=== PATIENT | female | born 1985 | race Caucasian/White ===

== ENCOUNTER 2025-04-07 12:26 | Inpatient (IN) | payer MEDICAID ==
[~2025-04-07] VITALS: Ht 142.2 cm; Wt 47.2 kg
[~2025-04-07 12:26] MED LIST: CALC-499 PO; LEVO50TA8 PO; MAGN24002 PO; MINE105O TP; MULT-620 PO; PSYL1PAC11 PO; SULF1TAB45 PO; TRAZ-256 PO
--- NOTE | 2025-04-07 14:06 | Physician Documentation ---
History of Present Illness ~ Chief Complaint: Nausea Stated Complaint: ABD SWELLING VOMITING Time Seen by MD: 12:51 Primary Medical Doctor: JUNE Mode of Arrival: POV, Ambulatory HPI Patient is seen today with her mother with complaints of abdominal distention and nausea and vomiting and decreased appetite over the last few days. Patient also has not had a bowel movement for about four days being last Sunday. Mother states she has had passage of a small amount of gas. 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 They have no other concern or complaint at this time. Patient's mother states that patient does have history of prior abdominal surgery removing a large tumor from her abdomen being a few years ago. Medication Reconciliation Allergies: Coded Allergies: clonidine (Verified Allergy, Unknown, 04/07/25) lamotrigine (Verified Allergy, Unknown, 04/07/25) risperidone (Verified Allergy, Unknown, 04/07/25) Scheduled Calcium Citrate/Vitamin D3 (Citracal + D Caplet), 1 TAB PO DAILY, (Reported) Levothyroxine Sodium (Levothyroxine Sodium), 1 TAB PO DAILY, (Reported) Multivitamins (Multivitamins), 1 TABLET PO DAILY, (Reported) Petrolatum,White (Aquaphor), 1 APPLIC TP QPM, (Reported) Psyllium Seed/Sucrose (Metamucil Packet), 1 EACH PO DAILY, (Reported) Sulfamethoxazole/Trimethoprim (Septra Ds Tab), 1 TAB PO BID, (Reported) Trazodone HCl (Trazodone HCl), 1 TAB PO HS, (Reported) Scheduled PRN Magnesium Hydroxide (Milk Of Magnesia), 15 ML PO HS PRN for constipation, (Reported) Past Medical History Past Medical History: Hypothyroidism Past Surgical History: no surgical history Smoking Status: Never smoker Alcohol Use: None Drug Use: none Review of Systems Constitutional: Denies: chills, fever, weakness Eyes: Denies: pain, blurred vision ENT: Denies: ear pain, nose pain, throat pain, mouth pain Respiratory: Denies: cough, shortness of breath Cardiovascular: Denies: chest pain, palpitations Gastrointestinal: Denies: abdominal pain, nausea, vomiting Genitourinary: Denies: burning, dysuria Female Genitalia: Denies: vaginal discharge, pelvic pain Neurological: Denies: headache, dizziness Musculoskeletal: Denies: pain, swelling Integumentary: Denies: rash, lesions Allergic/Immunologic: Denies: hives, itching Hematologic/Lymphatic: Denies: no symptoms reported Psychiatric: Denies: depression, anxiety Physical Exam Vital Signs: Temperature: 98.8, Source: Temporal, Heart Rate: 97, Respiratory Rate: 18, BP: 153/110, Pulse Oximetry: 96, Weight: 47.200 Oxygen Flow Rate: 0 Physical Exam General: Awake and Alert, no acute distress. Patient has appearance of Prader- Willi generally and is non communicative. HEENT: Conjunctiva pink, Sclera clear, Mucus Membranes moist. Neck: Supple without masses and tenderness. Resp: Unlabored. Lungs clear to auscultation bilaterally. Heart: Regular Rate and rhythm, normal S1 and S2 without murmur, rub or gallop. Abdomen: Abdomen is soft and quite distended, grossly nontender, no rebound or guarding. Decreased bowel sounds. Extremities: No cyanosis,clubbing or edema. Skin: Warm and Dry. Progress Results/Orders Results/Orders Orders - RAMIREZ HERNANDEZ PAC Abdomen,Single View(Kub) (04/07/25 14:01) Hcg, Ur Ql (04/07/25 14:01) Urinalysis, Cult If Indicated (04/07/25 14:01) Straight Cath For Urine Sample (04/07/25 14:01) Saline Lock (04/07/25 ) Ct Abdomen Pelvis (04/07/25 17:16) Page Hospitalist (04/07/25 17:35) Fill Out Med Reconciliation (04/07/25 17:35) * Restraint Order/Renewal * (04/07/25 17:44) Abdomen,Single View(Kub) (04/07/25 17:57) Completed Orders - RAMIREZ HERNANDEZ PAC Abdomen,Single View(Kub) (04/07/25 14:01) Cbc/Diff (04/07/25 14:01) Lipase (04/07/25 14:01) Hcg Serum Ql (04/07/25 14:01) BMP (04/07/25 14:01) Lacticsepsis (04/07/25 14:01) Ondansetron Disint. Tablet (Zofran Odt T (04/07/25 14:05) Sennosides/Docusate Sodium Tab (Senna-S (04/07/25 14:05) Man Diff (04/07/25 14:15) Diazepam Inj (Valium Inj) (04/07/25 15:56) Ct Abdomen Pelvis (04/07/25 17:16) Normal Saline 1000ml (0.9% Sodium Chlori (04/07/25 15:56) Iohexol 300mg/Ml 100ml Inj. (Omnipaque-3 (04/07/25 16:00) Diazepam Inj (Valium Inj) (04/07/25 17:40) Abdomen,Single View(Kub) (04/07/25 17:57) Medications Received in ER Medications (Trade) Dose Ordered Sig/Enedina Route PRN Reason Start Time Stop Time Status Last Admin Dose Admin (Zofran ODT tablet) 4 mg ONCE STAT PO 04/07/25 14:05 04/07/25 14:15 DC 04/07/25 14:33 4 MG (Senna-S tablet) 1 tab ONCE STAT PO 04/07/25 14:05 04/07/25 14:15 DC 04/07/25 14:33 1 TAB (Valium inj) 5 mg ONCE STAT IV 04/07/25 15:56 04/07/25 15:58 DC 04/07/25 16:54 5 MG Sodium Chloride 1,000 ml @ 1,000 mls/hr ONCE STAT IV 04/07/25 15:56 04/07/25 16:55 DC 04/07/25 16:53 1,000 MLS/HR (Valium inj) 5 mg ONCE ONCE IV 04/07/25 17:40 04/07/25 17:41 DC 04/07/25 17:43 5 MG Vital Signs 04/07/25 04/07/25 04/07/25 04/07/25 12:29 13:41 14:30 16:54 Temp 98.8 Pulse 97 90 Resp 18 18 16 16 B/P (MAP) 153/110 156/97 (116) Pulse Ox 96 98 O2 Flow Rate 0 0 04/07/25 04/07/25 16:56 17:43 Pulse 85 Resp 14 20 B/P (MAP) 157/113 (128) Pulse Ox 98 O2 Flow Rate 0 Laboratory Tests Test 04/07/25 12:37 04/07/25 14:15 Glucometer 147 H White Blood Count 4.0 L Red Blood Count 5.34 Hemoglobin 15.5 Hematocrit 46.2 H Mean Corpuscular Volume 86.4 Mean Corpuscular Hemoglobin 29.0 Mean Corpuscular Hemoglobin Concent 33.6 Red Cell Distribution Width 14.6 H Platelet Count 237 Mean Platelet Volume 7.4 Neutrophils (%) (Auto) 48.2 Lymphocytes (%) (Auto) 31.7 Monocytes (%) (Auto) 18.8 H Eosinophils (%) (Auto) 1.0 Basophils (%) (Auto) 0.3 Neutrophils # (Auto) 1.9 Lymphocytes # (Auto) 1.3 Monocytes # (Auto) 0.8 Eosinophils # (Auto) 0.0 Basophils # (Auto) 0.0 CBC Comment Differential Total Cells Counted 100 Neutrophils % (Manual) 40.0 L Lymphocytes % (Manual) 45.0 Monocytes % (Manual) 14.0 H Basophils % (Manual) 1.0 Platelet Estimate Normal Red Blood Cell Morphology Normal Basophilic Stippling Sodium Level 130 L Potassium Level 3.8 Chloride Level 88 L Carbon Dioxide Level 33.3 H Anion Gap 9 Blood Urea Nitrogen 30 H Creatinine 0.70 Estimated GFR/1.73 m2 > 90 BUN/Creatinine Ratio 42.9 H Glucose Level 117 H Lactic Acid Level 1.2 Calcium Level 9.1 Albumin 4.0 Lipase 43 Human Chorionic Gonadotropin, Qual Negative Chemistry Comments EKG/XRAY/CT/US/VASC/MRI Abdominal X-Ray : Additional Comment DIAGNOSTIC RADIOLOGY Patient: BANDAR VALDEZ Medical Record: [id number] [facility] : 1985, Age: 39 Sex: Female Location: ER Patient Status: REG ER Service Date/Time: 04/07/25 1401 Ordering Physician: RAMIREZ HERNANDEZ PAC Exam: ABDOMEN,SINGLE VIEW(KUB) Date: 04/07/2025 02:41 PM Examination: DI ABDOMEN,SINGLE VIEW(KUB) History: abd bloating, constipation Comparison: None TECHNIQUE: Frontal views of the abdomen was obtained. FINDINGS: Dilated loops of small bowel measuring up to 6 cm. The lung bases are unremarkable. No acute osseous abnormality identified. IMPRESSION: Dilated loops of small bowel measuring up to 6 cm. Small-bowel obstruction can not be excluded. Recommend further evaluation with CT. Electronically Signed by:SANGEETHA IHLL MD Date & Time: 04/07/251456 Dictated by: SANGEETHA HILL MD Dictation date and time: 04/07/251456 Primary Care Provider: NO PRIMARY CARE PROVIDER cc: RAMIREZ HERNANDEZ PAC ~ CT : Impression CAT SCAN Patient: BANDAR VALDEZ Medical Record: [id number] [facility] : 1985, Age: 39 Sex: Female Location: ER Patient Status: [facility] ER Service Date/Time: 04/07/251715 Ordering Physician: RAMIREZ HERNANDEZ PAC Exam: CT ABDOMEN PELVIS Exam: CT CT ABDOMEN PELVIS W/ IV CONTRAST History: abd pain, possible SBO Comparison Study: None TECHNIQUE: Multidetector CT of the abdomen and pelvis with IV contrast. Axial, coronal and sagittal multiplanar reformats were obtained from the axial data set by the technologist. Radiation Dose Information: CT Dose: CTDI volume is 15.56 mGy. Dose-length product is 772.72 mGy*cm FINDINGS: Bibasilar atelectasis. Partially visualized heart is unremarkable. Liver, spleen, gallbladder, pancreas and adrenal glands are unremarkable. Mild bilateral paranasal sinuses. Otherwise Kidneys and ureters are unremarkable. Mild wall thickening the urinary bladder due to inadequate distention. Uterus is unremarkable. Mild wall thickening of the distal esophagus. Fluid-filled Significantly distended stomach. Significant distention of proximal and mid small bowel loops up to 5.4 cm with transition point over the midline upper pelvis. The most distal small bowel loops appears to be decompressed. Wall thickening of Proximal small bowel loops. Appendix is unremarkable. Small to moderate amount of fecal material within the colon. Mild rectal wall thickening. No evidence of intraperitoneal free air or free fluid. No evidence of aortic aneurysm or dissection. No significant lymphadenopathy. Surgical clips are noted of the midline and right posterior pelvis. The soft tissues unremarkable. No evidence of acute osseous abnormalities. IMPRESSION: Enteritis of the proximal small bowel with small bowel obstruction measuring up to 5.4 cm with transition point over the midline upper pelvis. Significant distention of the stomach which is most likely associated with the small bowel obstruction. Mild wall thickening of the distal esophagus. Correlate for esophagitis. Mild rectal wall thickening which may be due to inadequate distention mild proctitis not excluded. Electronically Signed by:BRITT SON DO Date & Time: 04/07/251736 Dictated by: BRITT SON DO Dictation date and time: 04/07/251736 Primary Care Provider: NO PRIMARY CARE PROVIDER cc: RAMIREZ HERNANDEZ PAC ~ Medical Decision Making Findings Patient is seen today with her mother with complaints of abdominal distention and nausea and vomiting and decreased appetite over the last few days. Patient also has not had a bowel movement for about four days being last Sunday. Mother states she has had passage of a small amount of gas. 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 They have no other concern or complaint at this time. Patient's mother states that patient does have history of prior abdominal surgery removing a large tumor from her abdomen being a few years ago. Patient did have small bowel obstruction visualized on CT scan. I did contact the surgeon on-call Dr. Robins who agreed to see patient in the morning and advised placement of the NG tube. I did consult with the hospitalist as well and patient will be admitted for observation and surgical consult. Patient was given Valium IV as well as normal saline IV. Departure Disposition: ADMITTED INPATIENT Admitted to Inpatient Unit: to hospitalist Admission Level of Care: Med/Surg Impression: Primary Impression: SBO (small bowel obstruction) Condition: Stable Additional Instructions: Patient did have small bowel obstruction visualized on CT scan. I did contact the surgeon on-call Dr. Robins who agreed to see patient in the morning and advised placement of the NG tube. I did consult with the hospitalist as well and patient will be admitted for observation and surgical consult. Patient was given Valium IV as well as normal saline IV. Referrals: NO PRIMARY CARE PROVIDER (PCP) Signature Scribe Signature: No scribe Attestation: No scribe RAMIREZ HERNANDEZ PAC Apr 07, 2025 14:06
[2025-04-07 14:24] LABS: MEAN PLATELET VOLUME 7.4 FL (7.4-10.4); RED CELL DISTRIBUTION WIDTH 14.6 % (11.5-14.5)
[2025-04-07] MEDS: ondansetron 4mg rapidly disintigrating tab PO STA (14:33)
[2025-04-07 14:39] LABS: TOTAL CARBON DIOXIDE 33.3 MMOL/L (24-32)
[2025-04-07 14:48] LABS: HCG SERUM QL NEGATIVE
[2025-04-07 14:49] LABS: CREATININE 0.70 MG/DL (0.40-0.90); eCRCL 63 ML/MIN; eGFR > 90 ML/MIN
[2025-04-07 14:53] LABS: BASOPHILS % (MANUAL) 1.0 % (0-1); LYMPHOCYTES % (MANUAL) 45.0 % (21-51); MONOCYTES % (MANUAL) 14.0 % (2-12); NEUTROPHILS % (MANUAL) 40.0 % (42-75)
[2025-04-07 14:54] LABS: PLATELET ESTIMATE NORMAL
--- NOTE | 2025-04-07 15:00 | RADIOLOGY REPORT ---
Date: 04/07/2025 02:41 PM Examination: DI ABDOMEN,SINGLE VIEW(KUB) History: abd bloating, constipation Comparison: None TECHNIQUE: Frontal views of the abdomen was obtained. FINDINGS: Dilated loops of small bowel measuring up to 6 cm. The lung bases are unremarkable. No acute osseous abnormality identified. IMPRESSION: Dilated loops of small bowel measuring up to 6 cm. Small-bowel obstruction can not be excluded. Recommend further evaluation with CT.
[2025-04-07] MEDS ORDERED: iohexol 300mg/ml 100ml inj. ONE (16:00)
[2025-04-07] MEDS: normal saline 1000ml 1,000 ML IV STA (16:53)
[2025-04-07] MEDS: diazepam inj 5 MG/ML inj. IV STA (16:54)
--- NOTE | 2025-04-07 17:40 | RADIOLOGY REPORT ---
Exam: CT CT ABDOMEN PELVIS W/ IV CONTRAST History: abd pain, possible SBO Comparison Study: None TECHNIQUE: Multidetector CT of the abdomen and pelvis with IV contrast. Axial, coronal and sagittal multiplanar reformats were obtained from the axial data set by the technologist. Radiation Dose Information: CT Dose: CTDI volume is 15.56 mGy. Dose-length product is 772.72 mGy*cm FINDINGS: Bibasilar atelectasis. Partially visualized heart is unremarkable. Liver, spleen, gallbladder, pancreas and adrenal glands are unremarkable. Mild bilateral paranasal sinuses. Otherwise Kidneys and ureters are unremarkable. Mild wall thickening the urinary bladder due to inadequate distention. Uterus is unremarkable. Mild wall thickening of the distal esophagus. Fluid-filled Significantly distended stomach. Significant distention of proximal and mid small bowel loops up to 5.4 cm with transition point over the midline upper pelvis. The most distal small bowel loops appears to be decompressed. Wall thickening of Proximal small bowel loops. Appendix is unremarkable. Small to moderate amount of fecal material within the colon. Mild rectal wall thickening. No evidence of intraperitoneal free air or free fluid. No evidence of aortic aneurysm or dissection. No significant lymphadenopathy. Surgical clips are noted of the midline and right posterior pelvis. The soft tissues unremarkable. No evidence of acute osseous abnormalities. IMPRESSION: Enteritis of the proximal small bowel with small bowel obstruction measuring up to 5.4 cm with transition point over the midline upper pelvis. Significant distention of the stomach which is most likely associated with the small bowel obstruction. Mild wall thickening of the distal esophagus. Correlate for esophagitis. Mild rectal wall thickening which may be due to inadequate distention mild proctitis not excluded.
[2025-04-07] MEDS: diazepam inj 5 MG/ML inj. IV ONE ×2 (17:43→22:00)
--- NOTE | 2025-04-07 17:51 | PROGRESS NOTE ---
Progress Note Dictate Providers to CC CC: AMERICA OLIVO MD ~ Progress Note: Patient presents with the abdominal pain, distention and vomiting History of Prader-Willi syndrome CT scan consistent with a high-grade small bowel obstruction Hemodynamically normal No leukocytosis Recommend nasogastric tube decompression and I will consider repeat, contrast CT scan tomorrow evening if indicated. Full consult note to follow Antibiotic Ordered?: N/A Objective Vitals Vital Signs Date Time Temp Pulse Resp B/P (MAP) Pulse Ox O2 Delivery O2 Flow Rate FiO2 04/07/25 17:43 20 04/07/25 16:56 85 157/113 (128) 98 0 04/07/25 12:29 98.8 Lab Results: 04/07/25 1415 04/07/25 1415 AMERICA OLIVO MD Apr 07, 2025 17:51
[2025-04-07] MEDS ORDERED: magnesium sulf-water 2g/50mL 50 ML IV PRN (18:00)
[2025-04-07] MEDS ORDERED: magnesium sulf-water 4G/100mL 100 ML IV PRN (18:00)
[2025-04-07] MEDS ORDERED: potassium Cl 20 mEq SR tablet PO PRN ×2 (18:00)
[2025-04-07] MEDS ORDERED: magnesium hydroxide 30ml (MOM) UD suspension PO PRN (18:00)
[2025-04-07] MEDS ORDERED: mag hydrox/Alum hydrox/simeth 30ml oral suspension PO PRN (18:00)
[2025-04-07] MEDS ORDERED: magnesium Cl slow-release 64mg tablet PO PRN (18:00)
--- NOTE | 2025-04-07 18:14 | HISTORY AND PHYSICAL-Residence ---
History & Physical Providers to CC Resident Creating Document: JENNYSTACIALEXI ~ History of Present Illness Primary Medical Doctor: UNK Reason for Admit\Complaint: Small-bowel obstruction History of Present Illness This is a 39-year-old female patient with a past medical history of Prader- Willi, type 2 diabetes mellitus, hypothyroidism, presented to the ER for persistent vomiting, poor oral intake, dehydration, abdominal pain and distention for the last two days. Last Sunday she started vomiting and refusing oral diet associated with progressive pain and change from baseline mental status. Last bowel movement was three days ago but she has been passing gas. Mother states fever of 100 F today but denies productive cough, urinary symptoms or skin changes. No other symptoms reported. Allergies: Coded Allergies: clonidine (Verified Allergy, Unknown, 04/07/25) lamotrigine (Verified Allergy, Unknown, 04/07/25) risperidone (Verified Allergy, Unknown, 04/07/25) Home Medications Home Medications Active Reported Multivitamins 1 Each Tablet 1 Tablet PO DAILY Metamucil Packet (Psyllium Seed/Sucrose) 1 Each Packet 1 Each PO DAILY Citracal + D Caplet (Calcium Citrate) 1 Each Tablet 1 Tab PO DAILY Milk Of Magnesia (Magnesium Hydroxide) 2,400 Mg/10 Ml Oral.susp 15 Ml PO HS PRN Trazodone HCl 100 Mg Tablet 1 Tab PO HS Levothyroxine Sodium 50 Mcg Tablet 1 Tab PO DAILY Septra Ds Tab (Trimethoprim/Sulfamethoxazole) 800 Mg/160 Mg Tablet 1 Tab PO BID Aquaphor (Petrolatum,White) 99 Gm Oint...g. 1 Applic TP QPM apply to 2nd digit on right hand Past Medical History Past Medical History Prader-Willi Type 2 diabetes mellitus, diet controlled Hypothyroidism Past Surgical History Surgical History Comment Laparotomy in 2022 for tumor removal (family does not remember further details) Past Social History Smoking: Non-Smoker Alcohol Use: None Drug Use: None Lives with: Mother Lives In: Home Occupation: disabled ROS Constitutional: Reports: chills, fever, weakness Eyes: Reports: no symptoms reported; Denies: pain, blurred vision ENT: Reports: no symptoms reported; Denies: ear pain, nose pain, throat pain, mouth pain Respiratory: Reports: no symptoms reported; Denies: cough, shortness of breath Cardiovascular: Reports: no symptoms reported; Denies: chest pain, palpitations Gastrointestinal: Reports: abdomen distended, abdominal pain, nausea, vomiting Genitourinary: Reports: no symptoms reported; Denies: burning, dysuria Female Genitalia: Reports: no reported symptoms Neurological: Reports: no symptoms reported; Denies: headache, dizziness Musculoskeletal: Reports: no symptoms reported; Denies: pain, swelling Integumentary: Reports: no symptoms reported; Denies: rash, lesions Allergic/Immunologic: Reports: no symptoms reported; Denies: hives, itching Hematologic/Lymphatic: Reports: no symptoms reported Endocrine: Reports: no symptoms reported Psychiatric: Reports: no symptoms reported; Denies: depression, anxiety Unable to obtain: altered mental status Exam Vitals: Vital Signs Date Time Temp Pulse Resp B/P (MAP) Pulse Ox O2 Delivery O2 Flow Rate FiO2 04/07/25 17:43 20 04/07/25 16:56 85 157/113 (128) 98 0 04/07/25 12:29 98.8 General: General: Somnolent but responsive, notably in pain HEENT: Conjunctiva pink, Sclera clear, Mucus Membranes dry Neck: Supple without masses and tenderness. Resp: Unlabored. Lungs clear to auscultation bilaterally. Heart: Regular Rate and rhythm, normal S1 and S2 without murmur, rub or gallop. Abdomen is severely distended, tympanic, reduced bowel sounds, moderate tenderness to palpation diffusely without guarding or rebound, no organomegaly or masses. Previous laparotomy scar. Extremities: No cyanosis,clubbing or edema. Skin: Warm and Dry. Diagnostic Data Last Recorded Lab Results: 04/07/25 1415 04/07/25 1415 Additional Plan Assessment 39-year-old female patient admitted for poor oral intake, severe nausea, vomiting, abdominal pain and distention. 1. Small-bowel obstruction 2. Severe dehydration Progressive abdominal pain, abdominal distention, recurrent vomiting and poor oral intake Patient is not even being able to drink water Previous abdominal surgery in 2022 Temperature of 100 F but no other infectious signs WBC 4.0, BP 153/110mmHg, Heart rate 97bpm, Lactic acid 1.2 CT abdomen: Enteritis of the proximal small bowel with small bowel obstruction measuring up to 5.4 cm with transition point over the midline upper pelvis. Significant distention of the stomach which is most likely associated with the small bowel obstruction. Plan NPO NG tube in place Fluid resuscitation with 1000mL NS bolus Continuous lactated ringer 100mL/h Pain management with morphine Ordered CPR, procalcitonin, liver panel Zofran 4 mg q.6h scheduled and Reglan [address] Robins consulted, conservative measures recommended for now 3. Type 2 diabetes mellitus, diet-controlled Ordered A1c Hyper/hypoglycemia protocol placed 4. Hypothyroidism Ordered TSH Continue levothyroxine after med reconciliation 5. Prader-Willi Patient required diazepam 5 mg and restraints due to agitation in the ER Avoid over-sedation Code Status: Full code DVT prophylaxis: Enoxaparin Analgesia/sedation: Morphine Line/tube: PIV/NG tube GI prophylaxis: Pantoprazole Nutrition: NPO Physical therapy: Ordered Prognosis: Guarded Disposition: Admit to surgical floor for small-bowel obstruction evaluation and treatment. Resident MD attestation The above note has been reviewed and supervised by a senior resident PGY2/PGY3 Patient was seen, examined and discussed with the attending physician Patient is seen and examined in ER bed 14 patient's family is at the bedside insists that the patient needs to be transferred to [facility] is surgical intervention be required as they only trust Dr. Ang who used to work here who is now in [place] she would only want the surgery done by Dr. Giron if the surgery needs to be done. I explained to her that this would not be a higher level of care and the transfer would be her responsibility she said that is okay she has done in the past she is willing to leave AMA signed the patient out and readmit the patient at [facility]. But for tonight she would like to keep the patient in the hospital and see if this small-bowel obstruction resolves by tomorrow morning. I had a long discussion with the family at the bedside answered all her questions to the best of my ability and gave her all her options. Date of Service: Apr 07, 2025 Billing Provider: YAIMA ALARCON MD Common Visit Codes: [id number] INP/OBS CARE (HIGH) STACI ALVARADO, RES Apr 07, 2025 18:14 YAIMA ALARCON MD Apr 07, 2025 19:35
[2025-04-07] MEDS ORDERED: dextrose 50%-water 50ml dispensing syringe IV PRN (18:25)
[2025-04-07] MEDS ORDERED: DEXTROSE 15 GM of carb/4 tabs (each vial/BOTTLE has 4 tablets) PO PRN ×2 (18:25)
[2025-04-07] MEDS ORDERED: glucagon, human recombinant 1mg kit SUBCUT PRN (18:25)
--- NOTE | 2025-04-07 18:26 | RADIOLOGY REPORT ---
Indication: NG PLACEMENT PATIENT VOMMITED WITH NG IN PLACE Technique: DI ABDOMEN,SINGLE VIEW(KUB)[id number] Comparison: 04/07/2025 FINDINGS/IMPRESSION: Limited abdominal examination. Nasogastric tube projects towards the stomach with tip near the gastric fundal region. Severe gastric distention. Severe distention of small-bowel loops up to 6 cm, again concerning for small bowel obstruction. Contrast within the kidneys from the previous examination.
[2025-04-07] MEDS: docusate sod 100mg capsule PO SCH (19:06)
[2025-04-07] MEDS: K and/or MAG REPLACEMENT MC SCH (19:06)
[2025-04-07] MEDS: ringers solution, lacted 1,000 ML IV SCH (19:06)
[2025-04-07] MEDS: ondansetron/PF 4mg/2ml inj IV SCH (19:07)
[2025-04-07] MEDS ORDERED: QUET25TA36 PO (19:15)
[2025-04-07] MEDS: INSULIN LISPRO 100 UNIT/ML INSULN.PEN MULTI-DOSE SQ SCH (21:00)
[2025-04-07] MEDS: metoclopramide 5 mg/ml inj IV PRN (21:46)
[2025-04-07 22:45] VITALS: BP 135/89; PULSE 84; RESP 16; TEMP 98.6; O2SAT 98
[2025-04-08] MEDS: morphine 4 MG/ML inj SYRINge IV PRN (00:28)
[2025-04-08 01:20] LABS: LEUKOCYTE ESTERASE ,URINE NEGATIVE (Neg); NITRITES, URINE NEGATIVE (Neg); OCCULT BLOOD,URINE NEGATIVE (Neg); UA COLLECTION TYPE NON-SPECIFIED
[2025-04-08 01:21] LABS: URINE HCG NEGATIVE (NEG)
[2025-04-08 01:26] LABS: HYALINE CASTS 0-3 /LPF (NEGATIVE); MUCUS STRANDS FEW /LPF (Neg); SQUAMOUS EPITHELIAL CELL,UR FEW /LPF (FEW)
[2025-04-08] MEDS: INSULIN LISPRO 100 UNIT/ML INSULN.PEN MULTI-DOSE SQ SCH (04:00)
[2025-04-08] MEDS: diazepam inj 5 MG/ML inj. IV PRN (04:06)
[2025-04-08] MEDS: enoxaparin 40mg/0.4ml syringe SUBCUT SCH (08:26)
[2025-04-08] MEDS: potassium Cl 40MEQ/1/2NS 520ml 520 ML IV PRN (08:27)
[2025-04-08 08:50] VITALS: RESP 16; O2SAT 94
--- NOTE | 2025-04-08 10:39 | PROGRESS NOTE- Residence ---
Progress Note - Resident Providers to CC Resident Creating Document: STACI ALVARADO RES ~ Antibiotic Timeout Antibiotic Ordered?: No Subjective Patient was seen and examined at bedside. She was agitated last night but today she is awake and calm, does not appear to be in pain. Mother states that she wants to have surgery by Dr. Giron if it comes to that point. Objective Vital Signs Date Time Temp Pulse Resp B/P (MAP) Pulse Ox O2 Delivery O2 Flow Rate FiO2 04/08/25 04:06 15 04/08/25 01:44 Room Air 0.0 04/07/25 22:45 98.6 84 135/89 (104) 98 Result Diagram: 04/07/25 1415 04/08/25 0411 General: Somnolent but responsive, notably in pain HEENT: Conjunctiva pink, Sclera clear, Mucus Membranes dry Neck: Supple without masses and tenderness. Resp: Unlabored. Lungs clear to auscultation bilaterally. Heart: Regular Rate and rhythm, normal S1 and S2 without murmur, rub or gallop. Abdomen is moderate distended, tympanic, reduced bowel sounds, moderate tenderness to palpation diffusely without guarding or rebound, no organomegaly or masses. Previous laparotomy scar. Extremities: No cyanosis,clubbing or edema. Skin: Warm and Dry. Plan Plan Assessment 39-year-old female patient admitted for poor oral intake, severe nausea, vomiting, abdominal pain and distention. 1. Small-bowel obstruction 2. Severe dehydration Progressive abdominal pain, abdominal distention, recurrent vomiting and poor oral intake Patient is not even being able to drink water Previous abdominal surgery in 2022 Temperature of 100 F but no other infectious signs WBC 4.0, BP 153/110mmHg, Heart rate 97bpm, Lactic acid 1.2 CT abdomen: Enteritis of the proximal small bowel with small bowel obstruction measuring up to 5.4 cm with transition point over the midline upper pelvis. Significant distention of the stomach which is most likely associated with the small bowel obstruction. Plan NPO NG tube in place Fluid resuscitation with 1000mL NS bolus Continuous lactated ringer 100mL/h Pain management with morphine Ordered CPR, procalcitonin, liver panel Zofran 4 mg q.6h scheduled and Reglan [address] Robins consulted, conservative measures recommended for now 04/08/2025 Clinically improving Continue NG tube, IV fluids and scheduled Zofran 3. Prediabetes, diet-controlled A1c 5.8 Hyper/hypoglycemia protocol placed 4. Hypothyroidism TSH 0.69 Levothyroxine held due to NPO 5. Prader-Willi Patient required diazepam 5 mg last night and restraints due to agitation Avoid over-sedation Code Status: Full code DVT prophylaxis: Enoxaparin Analgesia/sedation: Morphine Line/tube: PIV/NG tube GI prophylaxis: Pantoprazole Nutrition: NPO Physical therapy: Ordered Prognosis: Guarded Disposition: Admit to surgical floor for small-bowel obstruction evaluation and treatment. Resident MD attestation The above note has been reviewed and supervised by a senior resident PGY2/PGY3 Patient was seen, examined and discussed with the attending physician Date of Service: Apr 08, 2025 Billing Provider: YAIMA ALARCON MD, LUCAS, RES Apr 08, 2025 10:39
[2025-04-08 10:53] LABS: MEAN PLATELET VOLUME 8.1 FL (7.4-10.4); RED CELL DISTRIBUTION WIDTH 14.6 % (11.5-14.5)
[2025-04-08 12:15] LABS: CREATININE 0.46 MG/DL (0.40-0.90); TOTAL CARBON DIOXIDE 30.6 MMOL/L (24-32); eCRCL 96 ML/MIN; eGFR > 90 ML/MIN
[2025-04-08] MEDS: dextrose 50%-water 50ml dispensing syringe IV PRN (12:26)
[2025-04-08] MEDS: acetaminophen 1,000mg/100ml IV 100 ML IV ONE (13:03)
[2025-04-08 18:00] VITALS: BP 128/85; PULSE 85; RESP 17; TEMP 98.3; O2SAT 96
--- NOTE | 2025-04-08 19:18 | PROGRESS NOTE ---
Progress Note Dictate Providers to CC ~ Progress Note: Persistent small-bowel obstruction Nasogastric tube output 500 cc today It appears feculent Acute urinary retention Abdomen fairly distended Nontender Continue nasogastric tube KUB Patient may need surgical intervention if this does not resolve in the next 12- 24 hours Antibiotic Ordered?: N/A Objective Vitals Vital Signs Date Time Temp Pulse Resp B/P (MAP) Pulse Ox O2 Delivery O2 Flow Rate FiO2 04/08/25 12:35 20 04/08/25 08:50 94 Room Air 0.0 04/07/25 22:45 98.6 84 135/89 (104) Lab Results: 04/08/25 0411 04/08/25 1138 AMERICA OLIVO MD Apr 08, 2025 19:18
[2025-04-08 20:00] VITALS: RESP 17; O2SAT 96
[2025-04-08] MEDS: LidoCAINE 2% Topical Jelly 11mL syringe (UROJET) TOP ONE (21:06)
--- NOTE | 2025-04-08 21:54 | RADIOLOGY REPORT ---
EXAM: DI ABDOMEN,SINGLE VIEW(KUB) HISTORY: abdominal distention, NGT positioning COMPARISON: DI ABDOMEN,SINGLE VIEW(KUB) on DOS: 04/07/25, DI ABDOMEN,SINGLE VIEW(KUB) on DOS: 04/07/25 TECHNIQUE: Single AP of the abdomen and pelvis was obtained. Findings: Frontal view of the abdomen demonstrates multiple loops of gaseous dilated small bowel. No visualized renal calculi. There is no evidence of an acute fracture, dislocation, blastic, or lytic lesions. The visualized portions of the lung bases are unremarkable. Enteric tube is overlying the plane of the stomach. No superficial soft tissue abnormalities. Impression: 1. Multiple loops of gaseous dilated bowel which may reflect ileus versus bowel obstruction. Correlate with signs and symptoms. 2. Enteric tube is overlying the plane of the stomach.
[2025-04-08 22:00] VITALS: BP 123/84; PULSE 98; RESP 14; TEMP 97.4; O2SAT 94
[2025-04-09] VITALS (17 sets, daily range): BP systolic 96–140; BP diastolic 61–100; PULSE 59–88; RESP 12–18; TEMP 97.5–99; O2SAT 95–100
[2025-04-09 04:38] LABS: MEAN PLATELET VOLUME 7.3 FL (7.4-10.4); RED CELL DISTRIBUTION WIDTH 14.5 % (11.5-14.5)
[2025-04-09 04:50] LABS: CREATININE 0.37 MG/DL (0.40-0.90); TOTAL CARBON DIOXIDE 32.3 MMOL/L (24-32); eCRCL 119 ML/MIN; eGFR > 90 ML/MIN
[2025-04-09 07:34] LABS: BANDS% (MANUAL) 16.0 % (0-10); LYMPHOCYTES % (MANUAL) 23.0 % (21-51); METAMYLEOCYTES% (MANUAL) 1.0 % (0-0); MONOCYTES % (MANUAL) 17.0 % (2-12); NEUTROPHILS % (MANUAL) 43.0 % (42-75); PLATELET ESTIMATE NORMAL
--- NOTE | 2025-04-09 10:47 | PROGRESS NOTE- Residence ---
Progress Note - Resident Providers to CC Resident Creating Document: STACI ALVARADO RES ~ Antibiotic Timeout Antibiotic Ordered?: No Subjective Patient was seen and examined at bedside. Patient did not have a bowel movement and is not passing gas. NG output has been more than 800mL possibly feculent. Objective Vital Signs Date Time Temp Pulse Resp B/P (MAP) Pulse Ox O2 Delivery O2 Flow Rate FiO2 04/08/25 22:24 12 04/08/25 22:00 97.4 98 123/84 (97) 94 Room Air 04/08/25 08:50 0.0 Result Diagram: 04/09/2540904/09/25409 General: Somnolent but responsive, notably in pain HEENT: Conjunctiva pink, Sclera clear, Mucus Membranes dry Neck: Supple without masses and tenderness. Resp: Unlabored. Lungs clear to auscultation bilaterally. Heart: Regular Rate and rhythm, normal S1 and S2 without murmur, rub or gallop. Abdomen is moderate distended, tympanic, reduced bowel sounds, moderate tenderness to palpation diffusely without guarding or rebound, no organomegaly or masses. Previous laparotomy scar. Extremities: No cyanosis,clubbing or edema. Skin: Warm and Dry. Plan Plan Assessment 39-year-old female patient admitted for poor oral intake, severe nausea, vomiting, abdominal pain and distention. 1. Small-bowel obstruction 2. Severe dehydration Progressive abdominal pain, abdominal distention, recurrent vomiting and poor oral intake Patient is not even being able to drink water Previous abdominal surgery in 2022 Temperature of 100 F but no other infectious signs WBC 4.0, BP 153/110mmHg, Heart rate 97bpm, Lactic acid 1.2 CT abdomen: Enteritis of the proximal small bowel with small bowel obstruction measuring up to 5.4 cm with transition point over the midline upper pelvis. Significant distention of the stomach which is most likely associated with the small bowel obstruction. Plan NPO NG tube in place Fluid resuscitation with 1000mL NS bolus Continuous lactated ringer 100mL/h Pain management with morphine Ordered CPR, procalcitonin, liver panel Zofran 4 mg q.6h scheduled and Reglan [address] Robins consulted, conservative measures recommended for now 04/08/2025 Clinically improving Continue NG tube, IV fluids and scheduled Zofran 04/09/2025 No improvement with conservative measures NG tube with 800mL of fecaloid liquid Surgery is planned today by Dr Robins 3. Prediabetes, diet-controlled A1c 5.8 Hyper/hypoglycemia protocol placed 4. Hypothyroidism TSH 0.69 Levothyroxine held due to NPO 5. Prader-Willi Patient required diazepam 5 mg last night and restraints due to agitation Avoid over-sedation Code Status: Full code DVT prophylaxis: Enoxaparin Analgesia/sedation: Morphine Line/tube: PIV/NG tube GI prophylaxis: Pantoprazole Nutrition: NPO Physical therapy: Ordered Prognosis: Guarded Disposition: Continue medical treatment. Possible surgical intervention today. Resident MD attestation The above note has been reviewed and supervised by a senior resident PGY2/PGY3 Patient was seen, examined and discussed with the attending physician Date of Service: Apr 09, 2025 Billing Provider: YAIMA ALARCON MD, LUCAS, RES Apr 09, 2025 10:47
--- NOTE | 2025-04-09 11:19 | RADIOLOGY REPORT ---
Date: 04/09/2025 10:32 AM Examination: DI ABDOMEN,SINGLE VIEW(KUB) History: SBO Comparison: DI ABDOMEN,SINGLE VIEW(KUB) on DOS: 04/08/25, DI ABDOMEN,SINGLE VIEW(KUB) on DOS: 04/07/25, CT CT ABDOMEN PELVIS W/ IV CONTRAST on DOS: 04/07/25, DI ABDOMEN,SINGLE VIEW(KUB) on DOS: 04/07/25 TECHNIQUE: Frontal views of the abdomen was obtained. FINDINGS: Nasogastric tube tip in the stomach. Diffusely dilated loops of small bowel measuring up to 4.6 cm. The lung bases are unremarkable. No acute osseous abnormality identified. IMPRESSION: Diffusely dilated loops of small bowel measuring up to 4.6 cm. Findings represent small-bowel obstruction
[2025-04-09] MEDS ORDERED: ondansetron/PF 4mg/2ml inj IV PRN (15:15)
[2025-04-09] MEDS ORDERED: labetalol 20mg/4ml (5mg/ml) syringe IV PRN (15:15)
[2025-04-09] MEDS ORDERED: hydrALAZINE 20mg/ml inj. IV PRN (15:15)
[2025-04-09] MEDS ORDERED: fentaNYL/PF 50MCG/1 ML 2ML syringe IV PRN ×2 (15:15)
[2025-04-09] MEDS ORDERED: morphine 4 MG/ML inj SYRINge IV PRN (15:15)
--- NOTE | 2025-04-09 16:01 | RADIOLOGY REPORT ---
CHEST RADIOGRAPH Indication: PRE OP Technique: Single frontal view of the chest was obtained Comparison: None FINDINGS: Lines and Tubes: Enteric tube is noted in satisfactory position. Lungs: Bronchovascular crowding due to low lung volumes. Accentuation of the left hilar structures which is most likely from Image rotation to the right. Elevation of the right hemidiaphragm. Pleura: No effusion. No pneumothorax. Cardiomediastinal contours: Unremarkable Bones: No acute osseous abnormality. A safety pin is noted overlying the right proximal humerus. IMPRESSION: Bronchovascular crowding due 2 low lung volumes. Otherwise, no evidence for acute cardiopulmonary disease. Enteric tube is in satisfactory position.
--- NOTE | 2025-04-09 16:01 | ELECTROCARDIOGRAPH REPORT ---
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 SOURAV Martinez Measurements Intervals [place] Rate: 85 P: 66 NH: 112 QRS: 100 QRSD: 93 T: 35 QT: 365 QTc: 434 Interpretive Statements Sinus rhythm Borderline short NH interval Borderline right axis deviation Electronically Signed On 04-10-2025 16:27:[address] SOURAV Martinez Please click the below link to view image of tracing.
[2025-04-09] MEDS ORDERED: LIDOcaine 1% 30ml preserv. free vial ONE (18:30)
[2025-04-09] MEDS ORDERED: BUPIVAcaine 2.5mg/ml inj 50ml vial (contains preservative) ONE (18:30)
--- NOTE | 2025-04-09 19:44 | CONSULTATION REPORT ---
History of Present Illness Providers to CC CC: AMERICA OLIVO MD ~ Reason for Admit\Admit Dx: Small-bowel obstruction Refering MD: JUNE History of Present Illness 39-year-old woman with Prader-Willi syndrome admitted two days ago with small- bowel obstruction Despite 36 hours of nasogastric tube decompression, she remains distended, uncomfortable with persistent, feculent nasogastric tube output Parents at the bedside Discussed continued nonoperative management versus exploratory surgery Given the patient's no obvious improvement and repeat x-ray showing significant small bowel distention, fluid-filled consistent with small-bowel obstruction, they are on board with proceeding with operative intervention Allergies: Coded Allergies: clonidine (Verified Allergy, Unknown, 04/07/25) lamotrigine (Verified Allergy, Unknown, 04/07/25) risperidone (Verified Allergy, Unknown, 04/07/25) Home Medications Home Medications Active Reported Quetiapine Fumarate 25 Mg Tablet 50 Mg PO HS Levothyroxine Sodium 50 Mcg Tablet 1 Tab PO DAILY Past Medical History Medical History Comment Prader-Willi syndrome Hypothyroidism Past Surgical History Surgical History Comment 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 at [facility] Past Family History Family History Comment Noncontributory Past Social History Social History Comment Negative x3 Lives with family Physical Exam Last Vital Signs Recorded: Temperature: 98.4, Source: Oral, Heart Rate: 85, Respiratory Rate: 18, BP: 120/83, Pulse Oximetry: 95, Weight: 47.200 General Appearance Syndromic appearing consistent with past surgical history Nonverbal Appears uncomfortable EENT: PERRL/EOMI; No: scleral icterus (R), scleral icterus (L) Neck: normal inspection, full range of motion Respiratory: lungs clear Cardiovascular: regular rate, rhythm Gastrointestinal Distended No palpable masses or hernias Surgical scar consistent with past surgical history Rectal: deferred Back: normal inspection Extremities: no edema Neurologic: unable to test Skin: normal color Lymphatic: no adenopathy Results Diagram Lab Result Diagram: 04/09/2540904/09/25409 Assessment/Plan Problems/Diagnosis: (1) SBO (small bowel obstruction) Assessment & Plan: The risks, benefits, and alternatives to an exploratory laparotomy with a possible small bowel resection were discussed with the patient's parents. Risks include, but are not limited to, bleeding, infection, leakage from the intestine and the need for additional surgical procedures. Family verbalized understanding and wishes to proceed with surgery. We will do so this evening. AMERICA OLIVO MD Apr 09, 2025 19:44
[2025-04-09] MEDS ORDERED: MIDAZolam 1 MG/ML 5ML VIAL ONE (19:58)
[2025-04-09] MEDS ORDERED: fentaNYL /PF 50mcg/ml 5ml ampule ONE (20:08)
[2025-04-09] MEDS ORDERED: ceFOXitin 1000 MG inj ONE ×2 (20:12)
[2025-04-09] MEDS ORDERED: propofol inj 20 ML IV ONE (20:12)
[2025-04-09] MEDS ORDERED: ondansetron/PF 4mg/2ml inj ONE (20:12)
[2025-04-09] MEDS ORDERED: dexamethasone sod phosphate 4mg/ml inj. ONE (20:12)
[2025-04-09] MEDS ORDERED: acetaminophen 1,000mg/100ml IV 100 ML IV ONE (20:13)
[2025-04-09] MEDS ORDERED: BUPIVACAINE liposomal/PF 13.3 MG/ML 10mL vial IM ONE (20:26)
[2025-04-09] MEDS ORDERED: BUPIVAcaine/PF 2.5mg/ml (0.25%) 10ml vial ONE (20:26)
[2025-04-09] MEDS ORDERED: labetalol 20mg/4ml (5mg/ml) syringe IV ONE (20:30)
[2025-04-09] MEDS ORDERED: rocuronium 10mg/ml inj IV ONE ×2 (20:34)
[2025-04-09] MEDS ORDERED: PCA WASTE DOCUMENTATION 1 MG ML MC SCH (21:20)
--- NOTE | 2025-04-09 21:30 | OPERATIVE REPORT ---
Operative Report Providers to CC CC: SHAHRAM OLIVO MD ~ Date of Procedure: Apr 09, 2025 Pre-Operative Diagnosis: SBO Post-Operative Diagnosis SAME as PRE-Op Procedure Performed Exploratory laparotomy Enterolysis Bilateral transversus abdominis plane nerve blocks by injection using 266 mg of Exparel Surgeon: Shahram Olivo MD FACS Chief Of Party None Anesthesiologist: Charlie East Type of Anesthesia: General Findings: Matted loops of small bowel densely adherent to each other with a clear transition point Wound class I Complications None Prosthetics\Implants used: None Estimated Blood Loss: Less than 10 cc Specimen Removed: None Description of Procedure: Patient was brought to the operating room and identified by the nursing staff and the attending physician. Patient was placed supine and general anesthesia was induced. Preoperative antibiotics were given. The abdomen was prepped and draped in the standard sterile fashion. Generous midline incision was made from the upper epigastrium down to below the umbilicus. The abdomen was entered. There was straw-colored ascites. There were some adhesions between the omentum and the anterior abdominal wall from her previous surgical exploration. These were taken down with a combination of electrocautery and LigaSure device. 4-5 cm diameter distended loops of small bowel, fluid filled were noted. These were completely mobilized out of the abdomen and followed up to the ligament of Treitz. Distally, there was a matted mass of small bowel with a clear transition point. There were interloop adhesions that were meticulously and slowly lysed freeing up each loop of small bowel until the entire length was free. Intestinal contents flowed freely through the previous transition point. This was followed distally and no additional adhesions of significance were found. The distended loops of small bowel were milked back into the stomach or the nasogastric tube suctioned the contents into the canister. Bowel was reduced back into the abdomen taking care to avoid any torsion. Bilateral transversus abdominis plane nerve blocks by injection were then placed with a combination of Marcaine and 266 mg of Exparel. Fascia was closed with a running absorbable suture and skin was closed with skin danielle. Sterile dressings were applied. Patient was awakened and taken to the postanesthesia care unit in stable condition. Counts repoted as correct: Yes SHAHRAM OLIVO MD Apr 09, 2025 21:30
[2025-04-09] MEDS: morphine 4 MG/ML inj SYRINge IV PRN (22:03)
[2025-04-10] VITALS (13 sets, daily range): BP systolic 90–136; BP diastolic 59–95; PULSE 66–107; RESP 12–18; TEMP 97.2–99; O2SAT 93–99
[2025-04-10] MEDS: morphine 4 MG/ML inj SYRINge IV PRN (02:04)
[2025-04-10] MEDS: morphine 4 MG/ML inj SYRINge IV ONE (02:09)
[2025-04-10] MEDS: ringers solution, lacted 1,000 ML IV SCH (02:21)
[2025-04-10 04:56] LABS: MEAN PLATELET VOLUME 7.2 FL (7.4-10.4)
[2025-04-10 04:58] LABS: RED CELL DISTRIBUTION WIDTH 14.4 % (11.5-14.5)
[2025-04-10 05:13] LABS: CREATININE 0.48 MG/DL (0.40-0.90); TOTAL CARBON DIOXIDE 26.4 MMOL/L (24-32); eCRCL 92 ML/MIN; eGFR > 90 ML/MIN
[2025-04-10 07:03] LABS: BANDS% (MANUAL) 10.0 % (0-10); LYMPHOCYTES % (MANUAL) 21.0 % (21-51); MONOCYTES % (MANUAL) 15.0 % (2-12); NEUTROPHILS % (MANUAL) 54.0 % (42-75); PLATELET ESTIMATE NORMAL
--- NOTE | 2025-04-10 14:49 | PROGRESS NOTE- Residence ---
Progress Note - Resident Providers to CC Resident Creating Document: STACI ALVARADO RES ~ Antibiotic Timeout Antibiotic Ordered?: No Subjective Patient was seen and examined at bedside. Patient did not have a bowel movement and is not passing gas. NG output has been more than 800mL possibly feculent. Objective Vital Signs Date Time Temp Pulse Resp B/P (MAP) Pulse Ox O2 Delivery O2 Flow Rate FiO2 04/10/25 10:00 97.2 77 12 131/95 (107) 97 Room Air 04/09/25 22:40 0.0 Result Diagram: 04/10/25 0440 04/10/25 0440 General: Awake and alert, no acute distress HEENT: Conjunctiva pink, Sclera clear, Mucus Membranes moist Neck: Supple without masses and tenderness. Resp: Unlabored. Lungs clear to auscultation bilaterally. Heart: Regular Rate and rhythm, normal S1 and S2 without murmur, rub or gallop. Abdomen is mildly distended, tympanic, reduced bowel sounds, moderate tenderness to palpation diffusely without guarding or rebound, no organomegaly or masses. Dressing is intact and dry. Extremities: No cyanosis,clubbing or edema. Skin: Warm and Dry. Plan Plan Assessment 39-year-old female patient admitted for poor oral intake, severe nausea, vomiting, abdominal pain and distention. 1. Small-bowel obstruction s/p exploratory laparotomy and enterolysis 2. Severe dehydration Progressive abdominal pain, abdominal distention, recurrent vomiting and poor oral intake Patient is not even being able to drink water Previous abdominal surgery in 2022 Temperature of 100 F but no other infectious signs WBC 4.0, BP 153/110mmHg, Heart rate 97bpm, Lactic acid 1.2 CT abdomen: Enteritis of the proximal small bowel with small bowel obstruction measuring up to 5.4 cm with transition point over the midline upper pelvis. Significant distention of the stomach which is most likely associated with the small bowel obstruction. Plan NPO NG tube in place Fluid resuscitation with 1000mL NS bolus Continuous lactated ringer 100mL/h Pain management with morphine Ordered CPR, procalcitonin, liver panel Zofran 4 mg q.6h scheduled and Reglan [address] Robins consulted, conservative measures recommended for now 04/08/2025 Clinically improving Continue NG tube, IV fluids and scheduled Zofran 04/09/2025 No improvement with conservative measures NG tube with 800mL of fecaloid liquid Surgery is planned today by Dr Robins 04/10/2025 POD - 1 uncomplicated exploratory laparotomy and enterolysis Labs are unremarkable No bowel movement present but reduced abdominal distention and NG output 3. Prediabetes, diet-controlled A1c 5.8 Hyper/hypoglycemia protocol placed 4. Hypothyroidism TSH 0.69 Levothyroxine held due to NPO 5. Prader-Willi Patient required diazepam 5 mg last night and restraints due to agitation Avoid over-sedation Code Status: Full code DVT prophylaxis: Enoxaparin Analgesia/sedation: Morphine Line/tube: PIV/NG tube GI prophylaxis: Pantoprazole Nutrition: NPO Physical therapy: Ordered Prognosis: Guarded Disposition: Continue medical treatment. Date of Service: Apr 10, 2025 Billing Provider: DEV BOUDREAUX MD Common Visit Codes: [id number] INP/OBS CARE(HIGH) STACI ALVARADO, RES Apr 10, 2025 14:49 DEV BOUDREAUX MD Apr 10, 2025 19:32
[2025-04-10] MEDS ORDERED: ondansetron/PF 4mg/2ml inj IV PRN (15:35)
--- NOTE | 2025-04-10 22:12 | PROGRESS NOTE ---
Progress Note Dictate Providers to CC CC: AMERICA OLIVO MD ~ Progress Note: Subsequent surgical care on a 39-year-old woman who is postoperative day 1 status post exploratory laparotomy with lysis of adhesions for small-bowel obstruction No obvious return of bowel function yet Continue nasogastric tube May remove gastric tube and advance diet when passing flatus Antibiotic Ordered?: N/A Objective Vitals Vital Signs Date Time Temp Pulse Resp B/P (MAP) Pulse Ox O2 Delivery O2 Flow Rate FiO2 04/10/25 20:27 18 04/10/25 20:17 107 136/93 (107) 94 Room Air 04/10/25 18:00 97.6 04/09/25 22:40 0.0 Lab Results: 04/10/25 0440 04/10/25 0440 Problem\Assessment\Plan Problems/Diagnosis: (1) SBO (small bowel obstruction) AMERICA OLIVO MD Apr 10, 2025 22:12
[2025-04-11 05:51] LABS: MEAN PLATELET VOLUME 7.9 FL (7.4-10.4); RED CELL DISTRIBUTION WIDTH 14.2 % (11.5-14.5)
[2025-04-11 06:01] LABS: CREATININE 0.34 MG/DL (0.40-0.90); TOTAL CARBON DIOXIDE 29.9 MMOL/L (24-32); eCRCL 130 ML/MIN; eGFR > 90 ML/MIN
[2025-04-11 07:05] VITALS: BP 110/77; PULSE 95; RESP 16; TEMP 97.8; O2SAT 93
[2025-04-11 08:00] VITALS: RESP 16; O2SAT 93
--- NOTE | 2025-04-11 11:03 | RADIOLOGY REPORT ---
Exam: DI ABDOMEN,SINGLE VIEW(KUB) Indication: sbo Comparison: DI ABDOMEN,SINGLE VIEW(KUB) on DOS: 04/09/25, DI ABDOMEN,SINGLE VIEW(KUB) on DOS: 04/08/25, DI ABDOMEN,SINGLE VIEW(KUB) on DOS: 04/07/25, CT CT ABDOMEN PELVIS W/ IV CONTRAST on DOS: 04/07/25, DI ABDOMEN,SINGLE VIEW(KUB) on DOS: 04/07/25 Technique: 1 radiographic views of the abdomen. Findings: Nonspecific bowel-gas pattern. Enteric catheter in satisfactory position. There is no definite evidence for pneumoperitoneum. No abnormal calcifications noted. Impression: Nonspecific bowel-gas pattern. Enteric catheter in satisfactory position.
[2025-04-11 11:46] VITALS: BP 133/79; PULSE 100; RESP 18; TEMP 97.5; O2SAT 92
--- NOTE | 2025-04-11 13:54 | PROGRESS NOTE ---
Progress Note ID Providers to CC ~ Progress Note Progress Note: no vomiting/vss/kub-ileus/labs noted a/p 1. s/p yfn-persistent ileus/cont npo SANDRA MOSER MD Apr 11, 2025 13:54
--- NOTE | 2025-04-11 14:24 | PROGRESS NOTE- Residence ---
Progress Note - Resident Providers to CC Resident Creating Document: STACI ALVARADO RES ~ Antibiotic Timeout Antibiotic Ordered?: No Subjective Patient was seen and examined at bedside. Patient has not had any bowel movement since admission and is still not passing gas. NG output has been minimal. No overnight events reported. Objective Vital Signs Date Time Temp Pulse Resp B/P (MAP) Pulse Ox O2 Delivery O2 Flow Rate FiO2 04/11/25 11:46 97.5 100 18 133/79 (97) 92 Room Air 04/10/25 22:00 0.0 Result Diagram: 04/11/2544904/11/25449 General: Awake and alert, no acute distress HEENT: Conjunctiva pink, Sclera clear, Mucus Membranes moist Neck: Supple without masses and tenderness. Resp: Unlabored. Lungs clear to auscultation bilaterally. Heart: Regular Rate and rhythm, normal S1 and S2 without murmur, rub or gallop. Abdomen is mildly distended, tympanic, reduced bowel sounds, mild tenderness to palpation without guarding or rebound, no organomegaly or masses. Dressing is intact and dry. Extremities: No cyanosis,clubbing or edema. Skin: Warm and Dry. Plan Plan Assessment 39-year-old female patient admitted for poor oral intake, severe nausea, vomiting, abdominal pain and distention. 1. Small-bowel obstruction s/p exploratory laparotomy and enterolysis 2. Severe dehydration + severe malnutrition/hypoalbuminemia Progressive abdominal pain, abdominal distention, recurrent vomiting and poor oral intake Patient is not even being able to drink water Previous abdominal surgery in 2022 Temperature of 100 F but no other infectious signs WBC 4.0, BP 153/110mmHg, Heart rate 97bpm, Lactic acid 1.2 CT abdomen: Enteritis of the proximal small bowel with small bowel obstruction measuring up to 5.4 cm with transition point over the midline upper pelvis. Significant distention of the stomach which is most likely associated with the small bowel obstruction. Plan NPO NG tube in place Fluid resuscitation with 1000mL NS bolus Continuous lactated ringer 100mL/h Pain management with morphine Ordered CPR, procalcitonin, liver panel Zofran 4 mg q.6h scheduled and Reglan [address] Robins consulted, conservative measures recommended for now 04/08/2025 Clinically improving Continue NG tube, IV fluids and scheduled Zofran 04/09/2025 No improvement with conservative measures NG tube with 800mL of fecaloid liquid Surgery is planned today by Dr Robins 04/10/2025 POD - 1 uncomplicated exploratory laparotomy and enterolysis Labs are unremarkable No bowel movement present but reduced abdominal distention and NG output 04/11/2025 POD - 2 ex-lap and enterolysis but still not passing gas or bowel movement Patient might be initiated on liquid diet if passing gas Continue physical therapy Albumin 1.8, secondary to poor oral intake 3. Prediabetes, diet-controlled A1c 5.8 Hyper/hypoglycemia protocol placed 4. Hypothyroidism TSH 0.69 Levothyroxine held due to NPO 5. Prader-Willi Patient required diazepam 5 mg last night and restraints due to agitation Avoid over-sedation Code Status: Full code DVT prophylaxis: Enoxaparin Analgesia/sedation: Morphine Line/tube: PIV/NG tube GI prophylaxis: Pantoprazole Nutrition: NPO Physical therapy: Home w/ assist Prognosis: Guarded Disposition: Continue medical treatment. Resident attestation The above note has been reviewed and supervised by a senior resident PGY2/PGY3 Patient was seen, examined and discussed with the attending physician Date of Service: Apr 11, 2025 Billing Provider: CORIE MASON DO Common Visit Codes: [id number] INP/OBS CARE(HIGH) STACI ALVARADO, RES Apr 11, 2025 14:24 CORIE MASON DO Apr 11, 2025 15:44
[2025-04-11 18:00] VITALS: BP 125/86; PULSE 96; RESP 20; TEMP 97.4; O2SAT 98
[2025-04-11 22:00] VITALS: BP 116/83; PULSE 92; RESP 15; TEMP 97.8; O2SAT 98
[2025-04-12 05:00] VITALS: BP 110/73; PULSE 80; RESP 15; TEMP 97; O2SAT 99
[2025-04-12 06:06] LABS: MEAN PLATELET VOLUME 7.2 FL (7.4-10.4); RED CELL DISTRIBUTION WIDTH 14.6 % (11.5-14.5)
[2025-04-12 06:08] LABS: CREATININE 0.33 MG/DL (0.40-0.90); TOTAL CARBON DIOXIDE 32.7 MMOL/L (24-32); eCRCL 134 ML/MIN; eGFR > 90 ML/MIN
[2025-04-12] MEDS ORDERED: magnesium sulf-water 2g/50mL 50 ML IV PRN (07:50)
[2025-04-12] MEDS ORDERED: magnesium sulf-water 4G/100mL 100 ML IV PRN (07:50)
[2025-04-12] MEDS ORDERED: potassium Cl 20 mEq SR tablet PO PRN ×2 (07:50)
[2025-04-12] MEDS ORDERED: magnesium Cl slow-release 64mg tablet PO PRN (07:50)
[2025-04-12] MEDS: potassium Cl 40MEQ/1/2NS 520ml 520 ML IV PRN (08:18)
[2025-04-12 08:44] VITALS: RESP 15; O2SAT 99
[2025-04-12 10:00] VITALS: BP 103/75; PULSE 87; RESP 18; O2SAT 96
[2025-04-12] MEDS: diatr meglu/diatrizoate 30ml oral sol.-(3 dose) bottle PO SCH (11:10)
[2025-04-12 11:58] LABS: TOTAL CARBON DIOXIDE 27.5 MMOL/L (24-32)
[2025-04-12] MEDS: chlorhexidine gluconate 15ml Cup****oral rinse MM SCH (14:34)
--- NOTE | 2025-04-12 15:31 | PROGRESS NOTE- Residence ---
Progress Note - Resident Providers to CC Resident Creating Document: VENITA SMYTH, ALEXI ~ Antibiotic Timeout Antibiotic Ordered?: No Subjective Patient was seen and examined at bedside. Patient has not had any bowel movement since admission and is still not passing gas. NG output has been minimal. No overnight events reported. Patient is nonverbal. Objective Vital Signs Date Time Temp Pulse Resp B/P (MAP) Pulse Ox O2 Delivery O2 Flow Rate FiO2 04/12/25 10:00 87 18 103/75 (84) 96 04/12/25 08:44 Room Air 0.0 04/12/25 05:00 97.0 Result Diagram: 04/12/25 0534 04/12/25 1041 Awake , alert and mildly agitated, not in acute distress HEENT: Atraumatic, normocephalic, PERRLA, EOMI, anicteric sclera ; pink conjunctiva, moist mucos membranes Neck: Trachea midline. Supple, normal range of motion, no JVD, no lymphadenopathy Chest and Respiratory: Equal breath sounds bilaterally, no tachypnea, wheezing, ronchi,rubs .Chest wall is symmetric and without deformity. Cardiac: S1, S2 heard,Regular rate and rhythm, no murmurs heard. Abdomen: Soft, diffuse mild tenderness over the abdomen, decreased bowel sounds, no guarding or rebound tenderness, Bills sign negative no organomegaly. Dressing is intact MSK: Range of motion of all extremities are normal. There is no joint pain or joint swelling or joint erythema. There is no muscle pain or tenderness or swelling. Extremities: warm, well-perfused, No cyanosis, clubbing, 2+ pulses felt Skin: Warm and dry Assessment Assessment A 39-year-old female patient admitted for poor oral intake, severe nausea, vomiting, abdominal pain and distention underwent exploratory laparotomy and enterolysis for Small-bowel obstruction Plan Plan 1. Small-bowel obstruction s/p exploratory laparotomy and enterolysis 2. Severe dehydration + severe malnutrition/hypoalbuminemia Progressive abdominal pain, abdominal distention, recurrent vomiting and poor oral intake Patient is not even being able to drink water Previous abdominal surgery in 2022 Temperature of 100 F but no other infectious signs WBC 4.0, BP 153/110mmHg, Heart rate 97bpm, Lactic acid 1.2 CT abdomen: Enteritis of the proximal small bowel with small bowel obstruction measuring up to 5.4 cm with transition point over the midline upper pelvis. Significant distention of the stomach which is most likely associated with the small bowel obstruction. Plan NPO NG tube in place Fluid resuscitation with 1000mL NS bolus Continuous lactated ringer 100mL/h Pain management with morphine Ordered CPR, procalcitonin, liver panel Zofran 4 mg q.6h scheduled and Reglan [address] Robins consulted, conservative measures recommended for now 04/08/2025 Clinically improving Continue NG tube, IV fluids and scheduled Zofran 04/09/2025 No improvement with conservative measures NG tube with 800mL of fecaloid liquid Surgery is planned today by Dr Robins 04/10/2025 POD - 1 uncomplicated exploratory laparotomy and enterolysis Labs are unremarkable No bowel movement present but reduced abdominal distention and NG output 04/11/2025 POD - 2 ex-lap and enterolysis but still not passing gas or bowel movement Patient might be initiated on liquid diet if passing gas Continue physical therapy Albumin 1.8, secondary to poor oral intake 04/12/2025 Patient still does not pass any gas or bowel movement. Follow up with CT scan with oral contrast as per Dr. White recommendation Planned for TPN from tomorrow Potassium is 3.3 , given potassium replacement as per protocol, potassium level improved to 4.2, monitor electrolytes. 3. Prediabetes, diet-controlled A1c 5.8 Hyper/hypoglycemia protocol placed 4. Hypothyroidism TSH 0.69 Levothyroxine held due to NPO 5. Prader-Willi Diazepam 5 mg IV p.r.n. for agitation Avoid over-sedation Ordered restraints due to agitation Code Status: Full code DVT prophylaxis: Enoxaparin Analgesia/sedation: Morphine Line/tube: PIV/NG tube GI prophylaxis: Pantoprazole Nutrition: NPO Physical therapy: Home w/ assist Prognosis: Guarded Disposition: Follow up with CT scan the oral contrast and planned for TPN tomorrow. Continue medical management. Resident attestation The above note has been reviewed and supervised by a senior resident PGY2/PGY3 Patient was seen, examined and discussed with the attending physician Rosy Smyth MD Internal Medicine Resident, PGY 1 Date of Service: Apr 12, 2025 Billing Provider: CORIE MASON SUNIL KUMAR, ALEXI Apr 12, 2025 15:31 CORIE MASON DO Apr 12, 2025 17:04
--- NOTE | 2025-04-12 17:56 | PROGRESS NOTE ---
Progress Note ID Providers to CC ~ Progress Note Progress Note: agitated/vss/abd-nondistended/labs noted a/p 1. s/p yfn/repeat ct SANDRA MOSER MD Apr 12, 2025 17:56
[2025-04-12 18:00] VITALS: BP 122/84; PULSE 96; RESP 19; TEMP 97.2; O2SAT 95
--- NOTE | 2025-04-12 19:14 | RADIOLOGY REPORT ---
Exam: CT CT ABDOMEN PELVIS W/ ORAL CONTRAST History: R/O bowel obstruction quick prep over 6 hours Comparison Study: CT CT ABDOMEN PELVIS W/ IV CONTRAST on DOS: 04/07/25 TECHNIQUE: Multidetector CT of the abdomen AND PELVIS with oral contrast. Axial, coronal and sagittal multiplanar reformats were obtained from the axial data set by the technologist. Radiation Dose Information: CT Dose: CTDI volume is 11.62 mGy. Dose-length product is 573.26 mGy*cm FINDINGS: Recent postsurgical changes of the ventral abdomen with subcutaneous fat edema, right ventral abdominal subcutaneous air midline skin danielle. Mild body wall edema. Trace right-sided pleural effusion with right basilar atelectasis. Partially visualized heart is unremarkable. Liver, spleen, gallbladder, pancreas and adrenal glands are unremarkable. Kidneys are displaced posteriorly. Otherwise, kidneys and ureters are unremarkable. Urinary bladder is decompressed with Raza catheter in place. Foci of air within the urinary bladder which is most likely iatrogenic. Of the Uterus and adnexa. Enteric tube is noted terminating within the distal stomach. The stomach is contrast filled and mild to moderately distended. The Proximal Small bowel loops are contrast filled and distended up to 4.9 cm. There is minimal contrast passing into the mid small bowel loops with no contrast passage into the distal small bowel loops and large bowel which may be from image timing. The distal small bowel loops appear decompressed. Appendix is unremarkable. Large amount of fecal material within the ascending colon with moderate amount of gas within the remainder of the colon. There is rectal wall thickening. Surgical clips are noted within the posterior lower abdomen/ upper pelvis. Large amount of fluid within the lower abdomen and pelvis with trace amount of fluid /mesenteric edema within the remainder of the abdomen. No evidence of intraperitoneal free air. No evidence of aortic aneurysm. Limited evaluation for lymphadenopathy. No evidence of acute osseous abnormalities. IMPRESSION: Interval postsurgical changes of the ventral abdominal wall. Distended stomach , proximal and mid Small bowel loops ; improved from prior imaging. Contrast is noted within the stomach and proximal to mid small bowel loops with no contrast passage into the mid to distal and distal small bowel and no contrast passage into the colon which is most likely from timing of imaging. Large amount of fecal material within the ascending colon with moderate amount of gas within the remainder of the colon. Distal rectal wall thickening which may be due to inadequate distention with proctitis/neoplasm not excluded. Large amount of free fluid within the pelvis and lower abdomen with trace mount of Fluid-filled/ mesenteric edema within the remainder of the abdomen.
[2025-04-12 20:00] VITALS: RESP 16; RESP 18; O2SAT 95
[2025-04-12 22:00] VITALS: BP 101/67; PULSE 68; RESP 16; TEMP 98.2; O2SAT 98
[2025-04-13] VITALS (7 sets, daily range): BP systolic 95–112; BP diastolic 65–79; PULSE 110–126; RESP 19–20; TEMP 98.1–99.6; O2SAT 90–96
[2025-04-13 05:45] LABS: MEAN PLATELET VOLUME 7.5 FL (7.4-10.4); RED CELL DISTRIBUTION WIDTH 14.2 % (11.5-14.5)
[2025-04-13 06:02] LABS: CREATININE 0.48 MG/DL (0.40-0.90); TOTAL CARBON DIOXIDE 26.5 MMOL/L (24-32); eCRCL 92 ML/MIN; eGFR > 90 ML/MIN
--- NOTE | 2025-04-13 15:15 | PROGRESS NOTE- Residence ---
Progress Note - Resident Providers to CC Resident Creating Document: VENITA SMYTH RES ~ Antibiotic Timeout Antibiotic Ordered?: No Subjective Patient was seen and examined at bedside.Patient had 2 bowel movements today morning. Patient has moderate abdominal distention. No acute overnight symptoms noted. Patient is nonverbal. Sitter is in place. Objective Vital Signs Date Time Temp Pulse Resp B/P (MAP) Pulse Ox O2 Delivery O2 Flow Rate FiO2 04/13/25 10:24 18 04/13/25 09:53 98.9 110 103/74 (84) 90 Room Air 04/13/25 08:45 0.0 Result Diagram: 04/13/25 0500 04/13/25 0500 Awake , alert and oriented, not in distress HEENT: Atraumatic, normocephalic, PERRLA, EOMI, anicteric sclera ; pink conjunctiva, moist mucos membranes Neck: Trachea midline. Supple, normal range of motion, no JVD, no lymphadenopathy Chest and Respiratory: Equal breath sounds bilaterally, no tachypnea, wheezing, ronchi,rubs .Chest wall is symmetric and without deformity. Cardiac: S1, S2 heard,Regular rate and rhythm, no murmurs heard. Abdomen: Soft, moderate abdominal distention, diffuse mild tenderness over the abdomen, sluggish bowel sounds, no guarding or rebound tenderness, Bills sign negative no organomegaly. Dressing is intact MSK: Range of motion of all extremities are normal. There is no joint pain or joint swelling or joint erythema. There is no muscle pain or tenderness or swelling. Extremities: warm, well-perfused, No cyanosis, clubbing, 2+ pulses felt Skin: Warm and dry Assessment Assessment A 39-year-old female patient admitted for poor oral intake, severe nausea, vomiting, abdominal pain and distention underwent exploratory laparotomy and enterolysis for Small-bowel obstruction Plan Plan 1. Small-bowel obstruction s/p exploratory laparotomy and enterolysis 2. Severe dehydration + severe malnutrition/hypoalbuminemia Progressive abdominal pain, abdominal distention, recurrent vomiting and poor oral intake Patient is not even being able to drink water Previous abdominal surgery in 2022 Temperature of 100 F but no other infectious signs WBC 4.0, BP 153/110mmHg, Heart rate 97bpm, Lactic acid 1.2 CT abdomen: Enteritis of the proximal small bowel with small bowel obstruction measuring up to 5.4 cm with transition point over the midline upper pelvis. Significant distention of the stomach which is most likely associated with the small bowel obstruction. Plan NPO NG tube in place Fluid resuscitation with 1000mL NS bolus Continuous lactated ringer 100mL/h Pain management with morphine Ordered CPR, procalcitonin, liver panel Zofran 4 mg q.6h scheduled and Reglan [address] Robins consulted, conservative measures recommended for now 04/08/2025 Clinically improving Continue NG tube, IV fluids and scheduled Zofran 04/09/2025 No improvement with conservative measures NG tube with 800mL of fecaloid liquid Surgery is planned today by Dr Robins 04/10/2025 POD - 1 uncomplicated exploratory laparotomy and enterolysis Labs are unremarkable No bowel movement present but reduced abdominal distention and NG output 04/11/2025 POD - 2 ex-lap and enterolysis but still not passing gas or bowel movement Patient might be initiated on liquid diet if passing gas Continue physical therapy Albumin 1.8, secondary to poor oral intake 04/12/2025 Patient still does not pass any gas or bowel movement. Follow up with CT scan with oral contrast as per Dr. White recommendation Planned for TPN from tomorrow Potassium is 3.3 , given potassium replacement as per protocol, potassium level improved to 4.2, monitor electrolytes. 04/13/2025: -Patient has abdominal pain, moderate abdominal distention. NG tube in place -Patient had 2 bowel movements today morning. -PICC line was placed. -Entertainment Musician was consulted for TPN as per Dr. White's recommendation -CT scan with oral contrast showed distended stomach , proximal and mid Small bowel loops ; improved from prior imaging. Contrast is noted within the stomach and proximal to mid small bowel loops with no contrast passage into the mid to distal and distal small bowel and no contrast passage into the colon which is most likely from timing of imaging. Distal rectal wall thickening which may be due to inadequate distention with proctitis/neoplasm not excluded. - Dr. White recommends advancing diet. -hypokalemia resolved, monitor electrolytes 3. Prediabetes, diet-controlled A1c 5.8 Hyper/hypoglycemia protocol placed 4. Hypothyroidism TSH 0.69 Levothyroxine held due to NPO 5. Prader-Willi Diazepam 5 mg IV p.r.n. for agitation Avoid over-sedation Ordered restraints due to agitation Code Status: Full code DVT prophylaxis: Enoxaparin Analgesia/sedation: Morphine Line/tube: PIV/NG tube GI prophylaxis: Pantoprazole Nutrition: TPN Physical therapy: Home w/ assist Prognosis: Guarded Disposition: CT abdomen showed small bowel obstruction. Patient had 2 bowel movements today morning. Awaiting for Dr. White's recommendations. Resident attestation The above note has been reviewed and supervised by a senior resident PGY2/PGY3 Patient was seen, examined and discussed with the attending physician Rosy Smyth MD Internal Medicine Resident, PGY 1 Disposition: Discharged home under mother's when medically cleared. Date of Service: Apr 13, 2025 Billing Provider: CORIE MASON DO Common Visit Codes: [id number] INP/OBS CARE(HIGH) VENITA SMYTH, RES Apr 13, 2025 15:15 CORIE MASON DO Apr 13, 2025 16:54
[2025-04-13 16:45] LABS: CREATININE 0.73 MG/DL (0.40-0.90); PHOSPHORUS 2.4 MG/DL (2.3-4.5); TOTAL CARBON DIOXIDE 26.5 MMOL/L (24-32); eCRCL 60 ML/MIN; eGFR 90 ML/MIN
--- NOTE | 2025-04-13 17:32 | PROGRESS NOTE ---
Progress Note Dictate Providers to CC ~ Progress Note: Subsequent surgical care on a 39-year-old woman who is postoperative day four status post exploratory laparotomy with lysis of adhesions for small-bowel obstruction CT scan yesterday showed ileus Multiple bowel movements today, loose with some gas Decreasing nasogastric tube output Incision clean, dry, and intact DC nasogastric tube Relistor 500 cc bolus due to decreased urine output today Antibiotic Ordered?: No Objective Vitals Vital Signs Date Time Temp Pulse Resp B/P (MAP) Pulse Ox O2 Delivery O2 Flow Rate FiO2 04/13/25 16:58 20 04/13/25 09:53 98.9 110 103/74 (84) 90 Room Air 04/13/25 08:45 0.0 Lab Results: 04/13/25 0500 04/13/25 1613 Problem\Assessment\Plan Problems/Diagnosis: (1) SBO (small bowel obstruction) AMERICA OLIVO MD Apr 13, 2025 17:32
[2025-04-13] MEDS: normal saline 1000ml 1,000 ML IV SCH (18:08)
[2025-04-13] MEDS: normal saline 500ml IV soln 500 ML IV ONE (18:08)
[2025-04-13] MEDS: ZINC/COPPER/MANGANESE/SELENIUM 1 ML, chromic chloride inj. 10 MCG, MVI, adult No.4 with... IV SCH (21:05)
[2025-04-13] MEDS: FAT EMUL/SOY/MCT/OLIV/FISH OIL (SMOF) 100 ML IV SCH (21:05)
[2025-04-13] MEDS: methylnaltrexone br 12mg/0.6ml inj***SubQ only SQ ONE (22:04)
[2025-04-14 05:00] VITALS: BP 107/77; PULSE 61; RESP 16; TEMP 99.3; O2SAT 94
[2025-04-14 06:17] LABS: CREATININE 0.49 MG/DL (0.40-0.90); PHOSPHORUS 1.6 MG/DL (2.3-4.5); TOTAL CARBON DIOXIDE 25.2 MMOL/L (24-32); eCRCL 90 ML/MIN; eGFR > 90 ML/MIN
[2025-04-14] MEDS: ringers solution, lacted 1,000 ML IV SCH (08:44)
[2025-04-14 10:00] VITALS: BP 102/65; PULSE 119; RESP 16; O2SAT 99
--- NOTE | 2025-04-14 10:07 | RADIOLOGY REPORT ---
Date: 04/14/2025 09:04 AM Examination: DI ABDOMEN,SINGLE VIEW(KUB) History: sbo Comparison: CT CT ABDOMEN PELVIS W/ ORAL CONTRAST on DOS: 04/12/25, DI ABDOMEN,SINGLE VIEW(KUB) on DOS: 04/11/25, DI ABDOMEN,SINGLE VIEW(KUB) on DOS: 04/09/25, DI ABDOMEN,SINGLE VIEW(KUB) on DOS: 04/08/25, DI ABDOMEN,SINGLE VIEW(KUB) on DOS: 04/07/25 TECHNIQUE: Frontal views of the abdomen was obtained. FINDINGS: Interval removal of enteric tube. Gaseous distention of the small bowel and colon. The lung bases are unremarkable. No acute osseous abnormality identified. IMPRESSION: Gaseous distention of the small bowel and colon. Findings may reflect an ileus.
[2025-04-14] MEDS: insulin regular, human U-100 10ml vial - multi-dose SQ SCH (10:25)
--- NOTE | 2025-04-14 13:25 | PROGRESS NOTE- Residence ---
Progress Note - Resident Providers to CC Resident Creating Document: VENITA SMYTH RES ~ Antibiotic Timeout Antibiotic Ordered?: No Subjective Patient was seen and examined at bedside. Patient had 2 bowel movements today. Patient mother stated that her abdominal distention is improved and patient is doing well. No acute overnight symptoms noted. Patient is nonverbal. Sitter is in place. Objective Vital Signs Date Time Temp Pulse Resp B/P (MAP) Pulse Ox O2 Delivery O2 Flow Rate FiO2 04/14/25 08:00 Room Air 0.0 04/14/25 05:50 18 04/13/25 22:00 98.1 112 103/70 (81) 95 Result Diagram: 04/13/25 0500 04/14/25 0545 Awake , alert and oriented, not in distress HEENT: Atraumatic, normocephalic, PERRLA, EOMI, anicteric sclera ; pink conjunctiva, moist mucos membranes Neck: Trachea midline. Supple, normal range of motion, no JVD, no lymphadenopathy Chest and Respiratory: Equal breath sounds bilaterally, no tachypnea, wheezing, ronchi,rubs .Chest wall is symmetric and without deformity. Cardiac: S1, S2 heard, Regular rate and rhythm, no murmurs heard. Abdomen: Soft, mild abdominal distention, no tenderness over the abdomen, bowel sounds heard, no guarding or rebound tenderness, Bills sign negative no organomegaly. Dressing is intact MSK: Range of motion of all extremities are normal. There is no joint pain or joint swelling or joint erythema. There is no muscle pain or tenderness or swelling. Extremities: warm, well-perfused, No cyanosis, clubbing, 2+ pulses felt Skin: Warm and dry Assessment Assessment A 39-year-old female patient admitted for poor oral intake, severe nausea, vomiting, abdominal pain and distention. Patient underwent exploratory laparotomy and enterolysis for Small-bowel obstruction. Plan Plan 1. Small-bowel obstruction s/p exploratory laparotomy and enterolysis by Dr. Shahram Robins on 04/09/25 2. Severe dehydration resolved 3. Severe malnutrition Progressive abdominal pain, abdominal distention, recurrent vomiting and poor oral intake Patient is not even being able to drink water Previous abdominal surgery in 2022 Temperature of 100 F but no other infectious signs WBC 4.0, BP 153/110mmHg, Heart rate 97bpm, Lactic acid 1.2 CT abdomen: Enteritis of the proximal small bowel with small bowel obstruction measuring up to 5.4 cm with transition point over the midline upper pelvis. Significant distention of the stomach which is most likely associated with the small bowel obstruction. Plan NPO NG tube in place Fluid resuscitation with 1000mL NS bolus Continuous lactated ringer 100mL/h Pain management with morphine Ordered CPR, procalcitonin, liver panel Zofran 4 mg q.6h scheduled and Reglan [address] Robins consulted, conservative measures recommended for now 04/08/2025 Clinically improving Continue NG tube, IV fluids and scheduled Zofran 04/09/2025 No improvement with conservative measures NG tube with 800mL of fecaloid liquid Surgery is planned today by Dr Robins 04/10/2025 POD - 1 uncomplicated exploratory laparotomy and enterolysis Labs are unremarkable No bowel movement present but reduced abdominal distention and NG output 04/11/2025 POD - 2 ex-lap and enterolysis but still not passing gas or bowel movement Patient might be initiated on liquid diet if passing gas Continue physical therapy Albumin 1.8, secondary to poor oral intake 04/12/2025 Patient still does not pass any gas or bowel movement. Follow up with CT scan with oral contrast as per Dr. White recommendation Planned for TPN from tomorrow Potassium is 3.3 , given potassium replacement as per protocol, potassium level improved to 4.2, monitor electrolytes. 04/13/2025: -Patient has abdominal pain, moderate abdominal distention. NG tube in place -Patient had 2 bowel movements today morning. -PICC line was placed. -Screen Repairer Crusher was consulted for TPN as per Dr. White's recommendation -CT scan with oral contrast showed distended stomach , proximal and mid Small bowel loops ; improved from prior imaging. Contrast is noted within the stomach and proximal to mid small bowel loops with no contrast passage into the mid to distal and distal small bowel and no contrast passage into the colon which is most likely from timing of imaging. Distal rectal wall thickening which may be due to inadequate distention with proctitis/neoplasm not excluded. - Dr. White recommends advancing diet. -hypokalemia resolved, monitor electrolytes 04/14/2025: -Patient vitals are stable -patient abdominal distention improved. 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 -discontinued NG tube and started on clear liquid diets, planned to advance diet as if patient tolerates, as per Dr. Robins recommendation -removed Raza catheter -potassium level is 3.3, replacement of potassium as per protocol 3. Prediabetes, diet-controlled A1c 5.8 Hyper/hypoglycemia protocol placed 4. Hypothyroidism TSH 0.69 Levothyroxine held due to NPO 5. Prader-Willi Diazepam 5 mg IV p.r.n. 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 Started on clear liquid diet and planned to advance diet as if patient tolerates, as per Dr. Robins recommendation. Anticipate discharge in next 24-48 hours. Discharged home under mother's when medically cleared. Resident attestation The above note has been reviewed and supervised by a senior resident PGY2/PGY3 Patient was seen, examined and discussed with the attending physician Rosy Smyth MD Internal Medicine Resident, PGY 1 Date of Service: Apr 14, 2025 Billing Provider: SANTOSH MCCRAY MD Common Visit Codes: [id number] INP/OBS CARE(HIGH) VENITA SMYTH, RES Apr 14, 2025 13:25 SANTOSH MCCRAY MD Apr 15, 2025 20:24
[2025-04-14] MEDS ORDERED: SODIUM PHOSPHATE IV ONE (13:45)
[2025-04-14] MEDS ORDERED: DEXTROSE 5% IV ONE (13:45)
[2025-04-14] MEDS ORDERED: WATER IV ONE (13:45)
[2025-04-14 15:51] LABS: TOTAL CARBON DIOXIDE 24.8 MMOL/L (24-32)
--- NOTE | 2025-04-14 16:47 | PROGRESS NOTE ---
Progress Note Dictate Providers to CC ~ Progress Note: Five days status post exploratory laparotomy with lysis of adhesions Okay to advance to full liquid diet Incision clean dry and intact Likely home in the next 24-48 hours Antibiotic Ordered?: N/A Objective Vitals Vital Signs Date Time Temp Pulse Resp B/P (MAP) Pulse Ox O2 Delivery O2 Flow Rate FiO2 04/14/25 10:00 119 16 102/65 (77) 99 Room Air 04/14/25 08:00 0.0 04/14/25 05:00 99.3 Lab Results: 04/13/25 0500 04/14/25 1526 Problem\Assessment\Plan Problems/Diagnosis: (1) SBO (small bowel obstruction) AMERICA OLIVO MD Apr 14, 2025 16:47
[2025-04-14 18:00] VITALS: BP 141/95; PULSE 110; RESP 19; TEMP 97.5; O2SAT 92
[2025-04-14 20:00] VITALS: RESP 20; O2SAT 100
[2025-04-14 22:00] VITALS: BP 110/72; PULSE 96; RESP 20; TEMP 97.7; O2SAT 100
[2025-04-14] MEDS: insulin glargine (Lantus) pen - multi-dose SQ ONE ×2 (22:41→22:42)
[2025-04-15 05:37] LABS: CREATININE 0.55 MG/DL (0.40-0.90); TOTAL CARBON DIOXIDE 27.1 MMOL/L (24-32); eCRCL 80 ML/MIN; eGFR > 90 ML/MIN
[2025-04-15 05:39] LABS: PHOSPHORUS 1.0 MG/DL (2.3-4.5)
[2025-04-15 06:00] VITALS: BP 112/74; PULSE 60; RESP 20; O2SAT 93
[2025-04-15] MEDS: levoTHYROXINE 25mcg tablet PO SCH (07:32)
[2025-04-15] MEDS ORDERED: potassium Cl 20 mEq SR tablet PO PRN (08:45)
[2025-04-15] MEDS ORDERED: potassium Cl 40MEQ/1/2NS 520ml 520 ML IV PRN (08:45)
[2025-04-15] MEDS: sodium phos 15mmol/D5 255mL 255 ML IV ONE (09:19)
[2025-04-15 10:00] VITALS: BP 117/70; PULSE 102; RESP 18; TEMP 98.6; O2SAT 100
[2025-04-15] MEDS: potassium Cl 20 mEq SR tablet PO PRN (12:42)
[2025-04-15] MEDS ORDERED: HYDROcodone/acetaminophen 5mg/325mg tablet PO PRN (14:05)
--- NOTE | 2025-04-15 14:28 | PROGRESS NOTE- Residence ---
Progress Note - Resident Providers to CC Resident Creating Document: VENITA SMYTH RES ~ Antibiotic Timeout Antibiotic Ordered?: No Subjective Patient was seen and examined at bedside. Patient had 3 foul-smelling bowel movements today and patient is doing well. No acute overnight symptoms noted. Patient is nonverbal. During daytime mother is taking care of the patient. Sitter is in place at night. Objective Vital Signs Date Time Temp Pulse Resp B/P (MAP) Pulse Ox O2 Delivery O2 Flow Rate FiO2 04/15/25 02:24 16 04/14/25 22:00 97.7 96 110/72 (85) 100 Room Air 04/14/25 20:00 0.0 Result Diagram: 04/13/25 0500 04/15/25 0430 Awake , alert and oriented, not in distress HEENT: Atraumatic, normocephalic, PERRLA, EOMI, anicteric sclera ; pink conjunctiva, moist mucos membranes Neck: Trachea midline. Supple, normal range of motion, no JVD, no lymphadenopathy Chest and Respiratory: Equal breath sounds bilaterally, no tachypnea, wheezing, ronchi,rubs .Chest wall is symmetric and without deformity. Cardiac: S1, S2 heard, Regular rate and rhythm, no murmurs heard. Abdomen: Soft, mild abdominal distention, no tenderness over the abdomen, bowel sounds heard, no guarding or rebound tenderness, Bills sign negative no organomegaly. Dressing is intact MSK: Range of motion of all extremities are normal. There is no joint pain or joint swelling or joint erythema. There is no muscle pain or tenderness or swelling. Extremities: warm, well-perfused, No cyanosis, clubbing, 2+ pulses felt Skin: Warm and dry Assessment Assessment A 39-year-old female patient admitted for poor oral intake, severe nausea, vomiting, abdominal pain and distention. Patient underwent exploratory laparotomy and enterolysis for Small-bowel obstruction. Plan Plan 1. Small-bowel obstruction s/p exploratory laparotomy and enterolysis by Dr. Shahram Robins on 04/09/25 2. Severe dehydration resolved 3. Severe malnutrition 4. ILeus Progressive abdominal pain, abdominal distention, recurrent vomiting and poor oral intake Patient is not even being able to drink water Previous abdominal surgery in 2022 Temperature of 100 F but no other infectious signs WBC 4.0, BP 153/110mmHg, Heart rate 97bpm, Lactic acid 1.2 CT abdomen: Enteritis of the proximal small bowel with small bowel obstruction measuring up to 5.4 cm with transition point over the midline upper pelvis. Significant distention of the stomach which is most likely associated with the small bowel obstruction. Plan NPO NG tube in place Fluid resuscitation with 1000mL NS bolus Continuous lactated ringer 100mL/h Pain management with morphine Ordered CPR, procalcitonin, liver panel Zofran 4 mg q.6h scheduled and Reglan [address] Robins consulted, conservative measures recommended for now 04/08/2025 Clinically improving Continue NG tube, IV fluids and scheduled Zofran 04/09/2025 No improvement with conservative measures NG tube with 800mL of fecaloid liquid Surgery is planned today by Dr Robins 04/10/2025 POD - 1 uncomplicated exploratory laparotomy and enterolysis Labs are unremarkable No bowel movement present but reduced abdominal distention and NG output 04/11/2025 POD - 2 ex-lap and enterolysis but still not passing gas or bowel movement Patient might be initiated on liquid diet if passing gas Continue physical therapy Albumin 1.8, secondary to poor oral intake 04/12/2025 Patient still does not pass any gas or bowel movement. Follow up with CT scan with oral contrast as per Dr. White recommendation Planned for TPN from tomorrow Potassium is 3.3 , given potassium replacement as per protocol, potassium level improved to 4.2, monitor electrolytes. 04/13/2025: -Patient has abdominal pain, moderate abdominal distention. NG tube in place -Patient had 2 bowel movements today morning. -PICC line was placed. -Combined Rail Operator was consulted for TPN as per Dr. White's recommendation -CT scan with oral contrast showed distended stomach , proximal and mid Small bowel loops ; improved from prior imaging. Contrast is noted within the stomach and proximal to mid small bowel loops with no contrast passage into the mid to distal and distal small bowel and no contrast passage into the colon which is most likely from timing of imaging. Distal rectal wall thickening which may be due to inadequate distention with proctitis/neoplasm not excluded. - Dr. White recommends advancing diet. -hypokalemia resolved, monitor electrolytes 04/14/2025: -Patient vitals are stable -patient abdominal distention improved. 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 -discontinued NG tube and started on clear liquid diets, planned to advance diet as if patient tolerates, as per Dr. Robins recommendation -removed Raza catheter -potassium level is 3.3, replacement of potassium as per protocol 04/15/25 Patient had 3 foul-smelling bowel movements today morning. Patient was treated with clindamycin in the hospital for 5 days. Follow up with C diff stool antigen test Patient's phosphorus level is 1, Phosphorus replacement as per protocol Potassium level is 3.2, potassium replacement as per protocol Follow up with phosphorus levels tomorrow Pain management with [place] q.4h PRN Stopped total parenteral nutrition Patient mother is taking care during the daytime. Patient need sitter at night 3. Prediabetes, diet-controlled A1c 5.8 Hyper/hypoglycemia protocol placed 4. Hypothyroidism TSH 0.69 Levothyroxine held due to NPO Continue home medication levothyroxine 5. Prader-Willi Diazepam 5 mg IV p.r.n. for agitation Avoid over-sedation Canceled restraints Code Status: Full code DVT prophylaxis: Enoxaparin Analgesia/sedation: Morphine Line/tube: PIV GI prophylaxis: Pantoprazole Nutrition: Full liquid diet Physical therapy: Home w/ assist Disposition: Started on full liquid diet and planned to advance diet as if patient tolerates, as per Dr. Robins recommendation. Anticipate discharge in next 24 hours. Discharged home with assistance under mother's when medically cleared. Resident attestation The above note has been reviewed and supervised by a senior resident PGY2/PGY3 Patient was seen, examined and discussed with the attending physician Rosy Smyth MD Internal Medicine Resident, PGY 1 Date of Service: Apr 15, 2025 Billing Provider: SANTOSH MCCRAY MD Common Visit Codes: 89989-[id number] INP/OBS CARE(HIGH) VENITA SMYTH, RES Apr 15, 2025 14:28 SANTOSH MCCRAY MD Apr 15, 2025 20:26
--- NOTE | 2025-04-15 17:38 | PROGRESS NOTE ---
Progress Note Dictate Providers to CC ~ Progress Note: Subsequent surgical care on a 39-year-old woman who is postoperative day 6, status post exploratory laparotomy with a lysis of adhesions for small-bowel obstruction Passing flatus, having bowel movements, and now tolerating a regular diet She has had some urinary retention Her TPN has been discontinued Incision clean, dry, and intact Abdomen soft and nondistended Okay for discharge from a surgical standpoint Urinary retention per hospitalist or, if necessary, urologic consultation Discharge instructions placed Follow up with me one week from Sunday for removal of danielle Patient may shower Antibiotic Ordered?: No Objective Vitals Vital Signs Date Time Temp Pulse Resp B/P (MAP) Pulse Ox O2 Delivery O2 Flow Rate FiO2 04/15/25 08:00 Room Air 0.0 04/15/25 02:24 16 04/14/25 22:00 97.7 96 110/72 (85) 100 Lab Results: 04/13/25 0500 04/15/25 0430 Problem\Assessment\Plan Problems/Diagnosis: (1) SBO (small bowel obstruction) AMERICA OLIVO MD Apr 15, 2025 17:38
[2025-04-15 18:00] VITALS: BP 109/77; PULSE 81; RESP 17; TEMP 98; O2SAT 97
[2025-04-15] MEDS: lactose-reduced food (Ensure High Protein) 237ml bottle PO SCH (18:00)
[2025-04-15 20:00] VITALS: RESP 19; O2SAT 96
[2025-04-15] MEDS: INSULIN LISPRO 100 UNIT/ML INSULN.PEN MULTI-DOSE SQ SCH (21:50)
[2025-04-15] MEDS: insulin glargine (Lantus) pen - multi-dose SQ ONE (21:51)
[2025-04-15 22:00] VITALS: BP 98/77; PULSE 57; RESP 19; TEMP 97.4; O2SAT 96
[2025-04-16 05:29] LABS: CREATININE 0.49 MG/DL (0.40-0.90); PHOSPHORUS 1.7 MG/DL (2.3-4.5); TOTAL CARBON DIOXIDE 25.9 MMOL/L (24-32); eCRCL 90 ML/MIN; eGFR > 90 ML/MIN
[2025-04-16 06:00] VITALS: BP 117/74; PULSE 94; RESP 14; TEMP 98.1; O2SAT 100
--- NOTE | 2025-04-16 20:51 | DISCHARGE SUMMARY-Residence ---
Discharge Summary Providers to CC Resident Creating Document: VENITA RICO MACK, RES ~ Discharge Summary Admission Diagnosis: SBO Hospital Course DATE OF ADMISSION: 04/07/2025 DATE OF DISCHARGE: 04/16/2025 Discharge Diagnosis\Comment: Small-bowel obstruction s/p exploratory laparotomy and enterolysis by Dr. Shahram Robins on 04/09/25 Severe dehydration resolved Severe malnutrition ILeus Prediabetes, diet-controlled Hypothyroidism Prader-Willi Operations\Procedures: Small-bowel obstruction s/p exploratory laparotomy and enterolysis by Dr. Shahram Robins on 04/09/25 Consultants: Dr. Shahram Robins and Dr. Sumeet White, the surgeons. Complications: None Condition on DC: Stable Discharge Summary: History of present illness: This is a 39-year-old female patient with a past medical history of Prader- Willi, type 2 diabetes mellitus, hypothyroidism, presented to the ER for persistent vomiting, poor oral intake, dehydration, abdominal pain and distention for the last two days. Last Sunday she started vomiting and refusing oral diet associated with progressive pain and change from baseline mental status. Last bowel movement was three days ago but she has been passing gas. Mother states fever of 100 F today but denies productive cough, urinary symptoms or skin changes. No other symptoms reported. Course in the hospital: Patient admitted with persistent vomiting, poor oral intake, dehydration, abdominal pain and distention for the last two days. CT abdomen showed small bowel obstruction. Patient underwent exploratory laparotomy and enterolysis by Dr. Shahram Robins on 04/09/25. Patient tolerated the procedure. Patient did not pass the gas or bowel movement per postoperative 3 days. PICC line was placed and TPN was given. On CT scan with oral contrast showed ileus. From 04/13/2025 patient passed gas and she had multiple bowel movements. Patient started on clear liquid diet and advanced to regular diet. Her abdominal distention improved significantly. Patient denied any nausea and vomiting. TPN was discontinued. Patient Condition was stable at the time of discharge. Patient was discharged home with Byrd catheter for mild urine retention and advised to follow up with Dr Levy (urologist) @ [phone]. Imaging: Abdominal x-ray: 04/07/2025:Dilated loops of small bowel measuring up to 6 cm. Small-bowel obstruction can not be excluded. 04/07/2025:Nasogastric tube projects towards the stomach with tip near the gastric fundal region. Severe gastric distention. Severe distention of small-bowel loops up to 6 cm, again concerning for small bowel obstruction. 04/08/2025:1. Multiple loops of gaseous dilated bowel which may reflect ileus versus bowel obstruction. Enteric tube is overlying the plane of the stomach. 04/09/2025: Diffusely dilated loops of small bowel measuring up to 4.6 cm. Findings represent small-bowel obstruction 04/11/2025: Nonspecific bowel-gas pattern. Enteric catheter in satisfactory position. 04/14/2025: Gaseous distention of the small bowel and colon. Findings may reflect an ileus. Chest x-ray: Bronchovascular crowding due 2 low lung volumes. Otherwise, no evidence for acute cardiopulmonary disease. Abdomen CT with IV contrast: Enteritis of the proximal small bowel with small bowel obstruction measuring up to 5.4 cm with transition point over the midline upper pelvis. Significant distention of the stomach which is most likely associated with the small bowel obstruction. Mild wall thickening of the distal esophagus. Correlate for esophagitis. Mild rectal wall thickening which may be due to inadequate distention mild proctitis not excluded. Abdominal CT with oral contrast: Interval postsurgical changes of the ventral abdominal wall. Distended stomach , proximal and mid Small bowel loops ; improved from prior imaging. Contrast is noted within the stomach and proximal to mid small bowel loops with no contrast passage into the mid to distal and distal small bowel and no contrast passage into the colon which is most likely from timing of imaging. Large amount of fecal material within the ascending colon with moderate amount of gas within the remainder of the colon. Distal rectal wall thickening which may be due to inadequate distention with proctitis/neoplasm not excluded. Large amount of free fluid within the pelvis and lower abdomen with trace mount of Fluid-filled/ mesenteric edema within the remainder of the abdomen. Examination on discharge: Awake , alert and oriented, not in distress HEENT: Atraumatic, normocephalic, PERRLA, EOMI, anicteric sclera ; pink conjunctiva, moist mucos membranes Neck: Trachea midline. Supple, normal range of motion, no JVD, no lymphadenopathy Chest and Respiratory: Equal breath sounds bilaterally, no tachypnea, wheezing, ronchi,rubs .Chest wall is symmetric and without deformity. Cardiac: S1, S2 heard, Regular rate and rhythm, no murmurs heard. Abdomen: Soft, mild abdominal distention, no tenderness over the abdomen, bowel sounds heard, no guarding or rebound tenderness, Bills sign negative no organomegaly. Dressing is intact MSK: Range of motion of all extremities are normal. There is no joint pain or joint swelling or joint erythema. There is no muscle pain or tenderness or swelling. Extremities: warm, well-perfused, No cyanosis, clubbing, 2+ pulses felt Skin: Warm and dry Vital Signs Date Time Temp Pulse Resp B/P (MAP) Pulse Ox O2 Delivery O2 Flow Rate FiO2 04/16/25 08:00 Room Air 04/16/25 06:00 98.1 94 14 117/74 (88) 100 04/15/25 20:00 0.0 Laboratory Tests Test 04/14/25 21:24 04/15/25 04:30 04/15/25 07:34 04/15/25 15:10 Glucometer 289 mg/dl 214 mg/dl 164 mg/dl Sodium Level 133 MMOL/L Potassium Level 3.2 MMOL/L Chloride Level 101 MMOL/L Carbon Dioxide Level 27.1 MMOL/L Anion Gap 5 Blood Urea Nitrogen 10 MG/DL Creatinine 0.55 MG/DL Estimated GFR/1.73 m2 > 90 ML/MIN BUN/Creatinine Ratio 18.2 Glucose Level 192 MG/DL Calcium Level 7.8 MG/DL Phosphorus Level 1.0 MG/DL Magnesium Level 1.6 MG/DL Total Bilirubin 0.3 MG/DL Aspartate Amino Transf (AST/SGOT) 13 U/L Alanine Aminotransferase (ALT/SGPT) 13 U/L Alkaline Phosphatase 70 IU/L Total Protein 4.8 G/DL Albumin 1.5 G/DL Globulin 3.3 G/DL Albumin/Globulin Ratio 0.5 Chemistry Comments Test 04/15/25 19:54 04/16/25 04:20 04/16/25 05:36 04/16/25 05:56 Glucometer 221 mg/dl 59 mg/dl 170 mg/dl Sodium Level 137 MMOL/L Potassium Level 3.7 MMOL/L Chloride Level 106 MMOL/L Carbon Dioxide Level 25.9 MMOL/L Anion Gap 5 Blood Urea Nitrogen 8 MG/DL Creatinine 0.49 MG/DL Estimated GFR/1.73 m2 > 90 ML/MIN BUN/Creatinine Ratio 16.3 Glucose Level 62 MG/DL Calcium Level 7.8 MG/DL Phosphorus Level 1.7 MG/DL Magnesium Level 1.6 MG/DL Total Bilirubin 0.2 MG/DL Aspartate Amino Transf (AST/SGOT) 11 U/L Alanine Aminotransferase (ALT/SGPT) 15 U/L Alkaline Phosphatase 68 IU/L Total Protein 4.7 G/DL Albumin 1.4 G/DL Globulin 3.3 G/DL Albumin/Globulin Ratio 0.4 Prealbumin 8.7 MG/DL Triglycerides Level 196 MG/DL Chemistry Comments Test 04/16/25 08:46 04/16/25 13:11 Glucometer 165 mg/dl 163 mg/dl Discharge instructions: Activity as tolerated. No lifting greater than 20 pounds for 4 weeks. Follow-up with Dr. Shahram Robins on April 24 Call [phone] May shower. Case Management will set up home health for you if you do not hear from them call Angelita at [phone] Levy (urologist) @ [phone] to make a follow up visit re: byrd. Diet as tolerated. *Problems/Diagnosis: (1) SBO (small bowel obstruction) Status: Acute (2) Small bowel obstruction (3) Severe dehydration (4) Malnutrition (5) Ileus (6) Prader-Willi syndrome (7) Hypothyroidism (8) Prediabetes Total Time Spent on D/C: > 30 Minutes Addendum urinary retention Date of Service: Apr 16, 2025 Billing Provider: SANTOSH MCCRAY MD Common Visit Codes: 52338-JTR/OBS DISCH DAY >30min VENITA RICO, RES Apr 16, 2025 20:50 SANTOSH MCCRAY MD Apr 16, 2025 21:28
== END 2025-04-16 17:06 | disposition home health service (06) | DRG 224 ==
LOC: ER 12:26 → ED HOLD 18:04 → SUR 3N 22:30
PROVIDERS: ADMIT Internal Medicine; ATTEND Internal Medicine
PROC: 0D9670Z Drainage of Stomach with Drainage Device, Via Natural or Artificial Opening (ICD-10-PCS; 2025-04-07)
PROC: BW211ZZ Computerized Tomography (CT Scan) of Abdomen and Pelvis using Low Osmolar Contrast (ICD-10-PCS; 2025-04-07)
PROC: 0DN80ZZ Release Small Intestine, Open Approach (ICD-10-PCS; 2025-04-09)
PROC: 3E0T3BZ Introduction of Anesthetic Agent into Peripheral Nerves and Plexi, Percutaneous Approach (ICD-10-PCS; principal; 2025-04-09 19:51)
PROC: BW211ZZ Computerized Tomography (CT Scan) of Abdomen and Pelvis using Low Osmolar Contrast (ICD-10-PCS; 2025-04-12)
PROC: 02HV33Z Insertion of Infusion Device into Superior Vena Cava, Percutaneous Approach (ICD-10-PCS; 2025-04-13)
PROC: 4A02X4A Measurement of Cardiac Electrical Activity, Guidance, External Approach (ICD-10-PCS; 2025-04-13)
DX: K56.50 Intestinal adhesions [bands], unspecified as to partial versus complete obstruction (principal); E43 Unspecified severe protein-calorie malnutrition; Q87.11 Prader-Willi syndrome; R18.8 Other ascites; E86.0 Dehydration; E03.9 Hypothyroidism, unspecified; K56.7 Ileus, unspecified; R33.9 Retention of urine, unspecified; Z88.8 Allergy status to other drugs, medicaments and biological substances; Z68.23 Body mass index [BMI] 23.0-23.9, adult
CPT/HCPCS: 36415; 71045; 74018; 74176; 74177; 76942; 80048; 80051; 80053; 80076; 81001; 81025; 82948; 83036; 83605; 83690; 83735; 84100; 84132; 84134; 84145; 84443; 84478; 84703; 85007; 85025; 86140; 87081; 92508; 93005; 96361; 96374; 96375; 96376; 97116; 97161; 97530; 99285; A4215; A4314; A4358; A4618; A5200; A6258; A6446; A7000; C1751; C1758; G0378; J0131; J0666; J0694; J1100; J1650; J1815; J2003; J2212; J2250; J2270; J2405; J2470; J2704; J2765; J3010; J3360; J3480; J3490; J7030; J7040; J7042; J7120; Q9963; Q9967